=== PATIENT | male | born 1980 | race Caucasian/White ===

== ENCOUNTER 2018-11-20 15:46 | Outpatient (CLI) | payer BC, SELFPAY ==
--- NOTE | 2018-11-20 10:30 | DI.RAD_ITS ---
SYMPTOM/DIAGNOSIS: ANKLE SPRAIN, PAIN, S93.409A, SWELLING RIGHT ANKLE: Three views were obtained. There is a nondisplaced fracture of the distal fibula which is subtle and most easily seen on the lateral view. Ankle mortise appears well maintained. No additional fracture is seen.
== END 2018-11-20 16:06 ==
PROVIDERS: PCP Family Medicine; Visit Provider Family Medicine
DX: S93.401A Sprain of unspecified ligament of right ankle, initial encounter (principal); M25.571 Pain in right ankle and joints of right foot; S82.64XA Nondisplaced fracture of lateral malleolus of right fibula, initial encounter for closed fracture
CPT/HCPCS: 73610

== ENCOUNTER 2018-12-19 17:23 | Inpatient (IN) | payer BC, SELFPAY ==
[2018-12-19 17:28] VITALS: BP 138/82; PULSE 100; RESP 16; TEMP 36.6; O2SAT 98
[2018-12-19 18:33] LABS: Abs Immature Grans 0.03 k/cumm (0.0-0.09); Absolute Basophil Count 0.01 k/cumm (0.0-0.2); Absolute Eosinophil Count 0.02 k/cumm (0.0-0.7); Absolute Lymphocyte Count 1.25 k/cumm (1.2-3.4); Absolute Monocyte Count 1.07 k/cumm (0.11-0.7); Basophils % 0.1; Eosinophils % 0.2; HCT 41.7 % (40.0-50.0); HGB 14.8 g/dL (13.5-17.5); Immature Grans % 0.3; Lymphocytes % 11.2; Mean Corp. HGB Concentration 35.5 g/dL (32.0-36.0); Mean Corpuscular Hemoglobin 30.4 pg (27.0-33.0); Mean Corpuscular Volume 85.6 fL (80-95); Mean Platelet Volume 9.3 fL (8.0-11.0); Monocytes % 9.6; Neutrophils % 78.6; Platelet Count 209 x1000/uL (130-400); RBC 4.87 m/cumm (4.50-6.00); RBC Distribution Width 12.9 % (11.8-14.1); White Blood Cell Count 11.16 k/cumm (4.4-10.8)
[2018-12-19 18:35] LABS: Lactate 1.2 mmol/L (0.6-1.4)
[2018-12-19 18:37] LABS: Absolute Neutrophil Count 8.77 k/cumm (1.2-6.7)
[2018-12-19 18:50] LABS: ALT 30 U/L (12-78); AST 22 U/L (15-37); Albumin 4.4 g/dL (3.4-5.0); Alkaline Phosphatase 57 U/L (46-116); Anion Gap 6.5 mmol/L (3-11); BUN 15 mg/dL (7-18); Bilirubin, Total 0.9 mg/dL (0.2-1.0); CO2 30.5 mmol/L (21.0-32.0); CREATININE 0.94 mg/dL (0.70-1.30); Calcium 9.5 mg/dL (8.5-10.1); Chloride 100 mmol/L (98-107); Glucose 118 mg/dL (70-100); Potassium 3.7 mmol/L (3.5-5.1); Sodium 137 mmol/L (136-145); Total Protein 7.9 g/dL (6.4-8.2)
[2018-12-19] MEDS: Lidocaine/Epinephri/Tetracaine Topical Gel 3 ML TP (18:55)
--- NOTE | 2018-12-19 19:14 | ED.GENADUL_ITS ---
Discharge Plan Disposition Patient Disposition: [facility] INPATIENT Discharge Details Chief Complaint: Cellulitis Clinical Impression: Septic olecranon bursitis of left elbow Reason For Visit: left elbow red /swelling Primary Care Provider: Ke Lunsford ED Provider: David Crabtree Home Meds and New Rx's Prescriptions: No Action ibuprofen 800 mg tablet 800 mg PO BID RF: 0 Medical Decision Making 38-year-old male here with septic bursitis left elbow. Patient provided informed consent to aspiration of bursa. Aspiration performed without complication. Fluid sent for cell count and culture. Erythema outlined. Patient be started on vancomycin IV. I called and spoke with Dr. Bolanos who will admit the patient. Diagnostic labs pending at time of admission. HPI General Mode of arrival: ambulatory . Date/Time Provider Initiated Documentation: 12/19/18 17:42 . Limitations to Documentation: no limitations . Information obtained by: patient . 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 Patient said yesterday his elbow felt a little sore. It was not swollen or red. This morning he woke up and noted sig nificant swelling and redness that has progressed today. He marked wound erythema border early this afternoon and redness is spread beyond the border. Pain is moderate and worse on palpation and with movement of his elbow. Patient does not recall any direct trauma to his elbow although he does have a healing wound with scab posterior elbow -he notes he thinks he sustained a rug burn to that area a week or so ago. Patient is also had some subjective fevers. No other rash. Related Data Home Medications Medication Instructions Recorded Confirmed ibuprofen 800 mg tablet 800 mg PO BID 11/09/18 12/19/18 Allergies Allergy/AdvReac Type Severity Reaction Status Date / Time No Known Allergies Allergy Verified 12/19/18 17:32 General Stated Complaint: Cellulitis HAKEEM: 3 Review of Systems Review of Systems All systems reviewed & are unremarkable except as noted in HPI and below Constitutional Reports as per HPI and Reports fever(s) Integumentary/Breasts Reports as per HPI PFSH Family History Mother No problems noted. Father No problems noted. Brother No problems noted. Social History Smoking and Tabacco status: Never Exam Const General: cooperative and no acute distress [facility] Head: normocephalic Mouth: moist mucous membranes Eyes Conjunctivae: normal conjunctivae Sclera: normal sclerae Resp Auscultation: clear to auscultation bilaterally, no rales, no rhonchi and no wheezes Cardio Rate: regular rate and not tachycardic Rhythm: regular rhythm Pulses: radial pulses present on the left Skin General skin exam: no rashes or lesions noted Neuro General: alert, awake and tone normal Extrem General: no edema Left upper extremity: elbow/forearm (tender, swollen bursa with surrounding erythema; small 1mm pustule) Details: tenderness Location: of the olecranon and swelling Location: of the olecranon Course Vital Signs Temperature 36.6 C 12/19/18 17:28 Pulse 100 H 12/19/18 17:28 Respiratory Rate 16 12/19/18 17:28 Blood Pressure 138/82 12/19/18 17:28 Pulse Oximetry 98 12/19/18 17:28 Temperature 36.6 C 12/19/18 17:28 Temperature Source Temporal Artery Scan 12/19/18 17:28 Pulse 100 H 12/19/18 17:28 Respiratory Rate 16 12/19/18 17:28 Respiratory Effort 12/19/18 17:31 Blood Pressure 138/82 12/19/18 17:28 Blood Pressure Position Sitting 12/19/18 17:28 Pulse Oximetry 98 12/19/18 17:28 Oxygen Delivery Method Room Air 12/19/18 17:28 Oxygen Flow Rate 0 12/19/18 17:28 Pain Level 5 12/19/18 17:28 Lab/Test Results Lab/Test Results: 12/19/18 18:55 Bursa Body Fluid Culture - Pending 12/19/18 18:55 Bursa Gram Stain - Pending Laboratory Tests Range/Units 12/19/18 12/19/18 12/19/18 18:23 18:23 18:23 WBC (4.4-10.8) k/cumm 11.16 H RBC (4.50-6.00) m/cumm 4.87 Hgb (13.5-17.5) g/dL 14.8 Hct (40.0-50.0) % 41.7 MCV (80-95) fL 85.6 MCH (27.0-33.0) pg 30.4 MCHC (32.0-36.0) g/dL 35.5 RDW (11.8-14.1) % 12.9 Plt Count (130-400) x1000/uL 209 MPV (8.0-11.0) fL 9.3 Immature Gran % 0.3 Neutrophils % 78.6 Lymphocytes % 11.2 Monocytes % 9.6 Eosinophils % 0.2 Basophils % 0.1 Absolute Neutrophils (1.2-6.7) k/cumm 8.77 H Absolute Lymphocytes (1.2-3.4) k/cumm 1.25 Absolute Monocytes (0.11-0.7) k/cumm 1.07 H Absolute Eosinophils (0.0-0.7) k/cumm 0.02 Absolute Basophils (0.0-0.2) k/cumm 0.01 Sodium (136-145) mmol/L 137 Potassium (3.5-5.1) mmol/L 3.7 Chloride (98-107) mmol/L 100 Carbon Dioxide (21.0-32.0) mmol/L 30.5 Anion Gap (3-11) mmol/L 6.5 BUN (7-18) mg/dL 15 Creatinine (0.70-1.30) mg/dL 0.94 Estimated GFR/1.73 m2 (mL/min/1.73m2) >= 60.00 Glucose (70-100) mg/dL 118 H Lactate (0.6-1.4) mmol/L 1.2 Calcium (8.5-10.1) mg/dL 9.5 Total Bilirubin (0.2-1.0) mg/dL 0.9 AST (15-37) U/L 22 ALT (12-78) U/L 30 Alkaline Phosphatase (46-116) U/L 57 Total Protein (6.4-8.2) g/dL 7.9 Albumin (3.4-5.0) g/dL 4.4 Procedures Joint Aspiration/Injection Joint Asp./Inject. 1: Time Out Performed: Yes Side of body: left Joint Aspirated: elbow (bursa) Ultrasound Guidance: No Skin Prep: Chlorhexidene Local Anesthetic: other anesthetic (LET) Amount of anesthesia used (mL): 3 Needle Size Used: 18G Fluid Obtained: clear (yellow) Total fluid obtained (mL): 7 Patient Tolerated Procedure: well and no complications Complications: none
[2018-12-19] MEDS: VANCOMYCIN 1,500 MG in Normal Saline 250 ML 166.6666 MG IVPB (19:27)
[2018-12-19] MEDS: VANCOMYCIN 1,000 MG in Normal Saline 250 ML 166.6666 MG IVPB (19:30)
[2018-12-19 19:55] LABS: Clarity CLOUDY; Nucleated Cells 25184 /MM3 (0-0); Source L ELBOW
[2018-12-19 20:10] VITALS: BP 136/86; PULSE 61; RESP 18; TEMP 37.1; O2SAT 99
[2018-12-19 20:12] LABS: Polynuclear Cells 95 % (0-0)
[2018-12-19 20:13] LABS: Mononuclear Cells 5 % (0-0)
[2018-12-19 21:00] VITALS: BP 136/86; PULSE 61; RESP 18; TEMP 37.1; O2SAT 99
[2018-12-19] MEDS: Heparin 5,000 UNITS/ML VIAL 5000 UNITS SC (22:58)
[2018-12-19] MEDS: Ibuprofen 800 MG TAB PO (22:58)
--- NOTE | 2018-12-19 23:17 | W.PM.HP.N ---
Date of service: 12/19/18 Time of Service: 23:17 Assessment and Plan (1) Septic olecranon bursitis of left elbow: Start date: 12/18/18 Current visit: Yes Status: Acute This is a 38-year-old gentleman who had a sudden onset of swelling, redness with tenderness over his left olecranon bursa of his elbow with a scabbed over ulceration earlier in the week and a sudden onset of pustule with his rapidly progressing symptoms the day of admission. He also had chills and fever. With the pustule and his fever and pain one should consider MRSA. He was started on vancomycin and a culture of his left bursa aspiration was sent before initiating vancomycin. He is comfortable presently after aspiration and with ibuprofen and will require IV antibiotics until culture reports and significant response to antibiotic therapy. 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 The day prior to admission the patient began to have soreness over the same area of the elbow and the morning of admission he awakened with significant swelling, pain and redness over his left elbow in the same area with a pustule forming proximally over the reddened swollen olecranon bursal area. Because of the sudden onset and accelerated progression of his swelling and redness he reported to the ED for evaluation. He also felt feverish with the onset of his elbow swelling. In the ED he had needle aspiration for culture and was started on vancomycin. He had been taken ibuprofen for his right fibular fracture with some slight upset stomach but he tolerated ibuprofen tonight for pain after eating later in the evening. At the time I saw the patient is swelling and redness has actually receded from the brown of its progression after having his olecranon bursa aspirated. He still had tenderness and the pustule was intact with the scabbed area appearing slightly atrophic and possibly indented as if ulcerating. He had noted no swollen nodes over his left upper extremity and had not measured his fever though he felt chills and feverish and had a measured fever in the ED. He is a non-smoker and has no chronic medical problems. He has had no problems with MRSA infections in the past. Review of Systems Review of Systems 13 point review of systems otherwise unrevealing or negative and as per HPI. FOR[facility]LY [facility], [facility] Medical History Closed right fibular fracture (Resolved) Complete tear of medial collateral ligament of right knee (Resolved) Surgical History Status post arthroscopic surgery of right knee (Resolved) Family History Mother No problems noted. Father No problems noted. Brother No problems noted. Social History Smoking and Tabacco status: Never Meds Home Medications Medication Instructions Recorded Confirmed Type ibuprofen 800 mg tablet 800 mg PO BID 11/09/18 12/19/18 History Allergies Allergy/AdvReac Type Severity Reaction Status Date / Time No Known Allergies Allergy Verified 12/19/18 17:32 Exam Const General: cooperative, healthy appearing, comfortable, no acute distress, well developed, well groomed and well hydrated Nutritional Appearance: well nourished and thin Orientation: alert, awake and oriented x3 HENMT Head: normocephalic Ears: external ears normal General nose exam: external nose normal Face and sinus: normal facial exam Mouth: oral mucosae normal Teeth and gingiva: dentition normal and gingiva normal Throat: posterior oropharynx normal Eyes General: appearance normal, both eyes and all related structures Sclera: sclerae normal Pupils: PERRL EOM: EOM intact bilaterally Neck Neck: full ROM, no lymphadenopathy and no JVD Chest Chest: normal inspection of the chest Resp Effort & Inspection: normal respiratory effort Auscultation: clear to auscultation bilaterally Cardio Palpation: normal PMI Rate: regular rate Rhythm: regular rhythm Heart Sounds: S1 normal and S2 normal Pulses: radial pulses present GI Inspection: normal to inspection Palpation: soft and nontender Auscultation: normal bowel sounds Back/Spine/Pelvis Back: No back tenderness Cervical Spine: cervical ROM normal Thoracic/Lumbar Spine: thoracic and lumbar spine normal to inspection Skin General skin exam: dry skin, no ecchymosis and no jaundice Lesions: lesion noted (Erythematous swelling over the olecranon bursa area extensor surface) pustule left elbow tender Neuro General: tone normal, moves all extremities and CN's II-XI intact bilaterally Cognition: normal cognition Speech: speech normal Motor: strength 5/5 throughout Extrem General: full ROM Left upper extremity: elbow/forearm Details: tenderness, swelling, warmth and other (Left olecranon area fluctuant) Psych Appearance: well kempt Mood: congruent mood Affect: normal affect Insight: insight good Judgment: judgment good Results Labs : 12/19/18 18:23 12/19/18 18:23 Laboratory Results - last 24 hr 12/19/18 12/19/18 12/19/18 18:23 18:23 18:23 WBC 11.16 H RBC 4.87 Hgb 14.8 Hct 41.7 MCV 85.6 MCH 30.4 MCHC 35.5 RDW 12.9 Plt Count 209 MPV 9.3 Immature Gran % 0.3 Neutrophils % 78.6 Lymphocytes % 11.2 Monocytes % 9.6 Eosinophils % 0.2 Basophils % 0.1 Absolute Neutrophils 8.77 H Absolute Lymphocytes 1.25 Absolute Monocytes 1.07 H Absolute Eosinophils 0.02 Absolute Basophils 0.01 Sodium 137 Potassium 3.7 Chloride 100 Carbon Dioxide 30.5 Anion Gap 6.5 BUN 15 Creatinine 0.94 Estimated GFR/1.73 m2 >= 60.00 Glucose 118 H Lactate 1.2 Calcium 9.5 Total Bilirubin 0.9 AST 22 ALT 30 Alkaline Phosphatase 57 Total Protein 7.9 Albumin 4.4 Fluid Source Fluid Color Fluid Appearance Fluid WBC Fluid Mononuclear Cell Fl Polymorphonucl Cell Fluid Crystals Fluid Crystal Source 12/19/18 12/19/18 19:12 19:12 WBC RBC Hgb Hct MCV MCH MCHC RDW Plt Count MPV Immature Gran % Neutrophils % Lymphocytes % Monocytes % Eosinophils % Basophils % Absolute Neutrophils Absolute Lymphocytes Absolute Monocytes Absolute Eosinophils Absolute Basophils Sodium Potassium Chloride Carbon Dioxide Anion Gap BUN Creatinine Estimated GFR/1.73 m2 Glucose Lactate Calcium Total Bilirubin AST ALT Alkaline Phosphatase Total Protein Albumin Fluid Source L elbow Fluid Color Yellow Fluid Appearance Cloudy Fluid WBC 43465 H Fluid Mononuclear Cell 5 H Fl Polymorphonucl Cell 95 H Fluid Crystals See comment Fluid Crystal Source L elbow Last Vital Signs Temp 37.1 C 12/19/18 21:00 Pulse 61 12/19/18 21:00 Resp 18 12/19/18 21:00 BP 136/86 12/19/18 21:00 Pulse Ox 99 12/19/18 21:00
[2018-12-19 23:43] VITALS: BP 118/65; PULSE 90; RESP 18; TEMP 37.9; O2SAT 96
--- NOTE | 2018-12-20 03:16 | NUR.NOTE ---
Patient was admitted from the ER to the unit with history of cellulititis to the left elbow. Patient state the left elbow started pain him since one day before and then he noticed it getting swollen and difficult to move, subsequently he came to hospital for treatment. On assessment adult male in nil respiratory or painful distress. He is A&Ox3. Mucus membrane pink and moist. chest clear when ascultated. Abdomen soft flat and non-tender when palpated. NAD to the extremities. Gauze noted wrapped around the left elbow. Same uncovered for assessment, noted marked swelling and redness to the area with tenderness voiced when palpated, area also warm to touch. 20G to the right hand with vancomycin progressing from the ER. Pt made comfortable in bed, oriented to the room and hospital policy.
[2018-12-20 03:52] VITALS: BP 100/59; PULSE 66; RESP 16; TEMP 36.8; O2SAT 99
[2018-12-20] MEDS: Normal Saline Flush 10 ML SYR IVP ×2 (04:23→17:44)
[2018-12-20] MEDS: Acetaminophen 325 MG TAB PO (04:23)
[2018-12-20] MEDS: Lactated Ringers 1,000 ML 125 ML IV ×2 (04:23→15:42)
[2018-12-20] MEDS: VANCOMYCIN 1,000 MG in Normal Saline 250 ML 166.6666 MG IVPB (04:24)
[2018-12-20] MEDS: Heparin 5,000 UNITS/ML VIAL 5000 UNITS SC (05:58)
[2018-12-20 07:40] VITALS: BP 109/67; PULSE 63; RESP 20; TEMP 36; O2SAT 98
[2018-12-20 07:40] LABS: HCT 38.4 % (40.0-50.0); HGB 13.5 g/dL (13.5-17.5); Mean Corp. HGB Concentration 35.2 g/dL (32.0-36.0); Mean Corpuscular Hemoglobin 30.5 pg (27.0-33.0); Mean Corpuscular Volume 86.9 fL (80-95); Mean Platelet Volume 9.5 fL (8.0-11.0); Platelet Count 173 x1000/uL (130-400); RBC 4.42 m/cumm (4.50-6.00); RBC Distribution Width 12.8 % (11.8-14.1); White Blood Cell Count 8.77 k/cumm (4.4-10.8)
[2018-12-20 08:02] LABS: ALT 36 U/L (12-78); AST 27 U/L (15-37); Albumin 3.5 g/dL (3.4-5.0); Alkaline Phosphatase 46 U/L (46-116); Anion Gap 6.1 mmol/L (3-11); BUN 13 mg/dL (7-18); Bilirubin, Total 0.9 mg/dL (0.2-1.0); CO2 28.9 mmol/L (21.0-32.0); Calcium 8.7 mg/dL (8.5-10.1); Chloride 103 mmol/L (98-107); Glucose 103 mg/dL (70-100); Potassium 3.8 mmol/L (3.5-5.1); Sodium 138 mmol/L (136-145); Total Protein 6.8 g/dL (6.4-8.2)
--- NOTE | 2018-12-20 10:07 | PDOC.CMIN ---
Care Management Initial Assess REASON FOR HOSPITALIZATION:: Septic Olecranon Bursitis of the Left Elbow PAST MEDICAL HISTORY/PAST SURGICAL HISTORY:: Closed right fibular fracture, Complete tear of medial collateral ligament of right knee; orthroscopic surgery of right knee PREVIOUS FUNCTIONAL STATUS/SOCIAL/FAMILY SUPPORTS:: Woo resides in [place], [place]. His mother, Fatimah is his primary contact-she resides in [place]. Woo reports moving to [place] twenty five years ago. 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 CURRENT FUNCTIONAL STATUS:: Woo was sitting up in his bed when CM met with him, he was forthcoming with information; discussed some hobbies such as [employer] and work, as well as his family situation. He was pleasant in interaction. ADVANCE DIRECTIVES:: None on file. Has patient been provided with information about the portal?: Yes Did the patient sign up for the portal?: No CODE STATUS:: Full Code INSURANCE COVERAGE / FINANCIAL ISSUES:: BC/BS [place] CURRENT HOME/COMMUNITY SERVICES/EQUIPMENT:: No current services or equipment. PRIMARY CARE PHYSICIAN:: Ke Lunsford POTENTIAL DISCHARGE NEEDS:: Follow up appointment with PCP. PATIENT/FAMILY EDUCATION NEEDS:: Review of discharge instructions; Ask Me Three. ANTICIPATED BARRIERS TO DISCHARGE:: None identified. TRANSPORTATION:: Via private vehicle with a friend. PLAN:: Woo will return home when ready per MD. He will follow up with his PCP and plan of care as prescribed. CM will continue to follow.
--- NOTE | 2018-12-20 10:57 | PHARADMIT ---
Addendum entered by Marlene Lazaro 12/21/18 10:51: Pharmacy Note Subjective Objective Afebrile, VS good, pain 2/10, labs/lytes in range Micro Bursa: Gram positive nayla from broth only Assessment Vanco trough 26.2, held dose x 6 hours then adjusted to Vanco 1gram Q8h Plan follow Micro, Orthopedic consult for possible washout Likely switch to oral once cultures available Original Note: Admission Pharmacy Clinical Review ? Septic arthritis elbow Code Status Full Code Current Weight 78.8 kg Renally Cleared and Narrow Therapeutic Index Meds CrCl~121ml/min QTc Value / Action Taken BP Control, Fever BP 109/67 afebrile Pain zero Electrolytes reviewed in range DVT Prophylaxis Heparin SC Opiate Usage / Scheduled Bowel Regimen Ordered Plt/SCr for Heparin / Enoxaparin Plt 173 SCr 0.9 INR for Warfarin H/H stable, WBC/Bands H/H 13.5/38.4 WBC 8.77 Antibiotic appropriateness Vanco 1.5gram Q8h, trough ordered for 5pm Friday...may be a little early, may be discontined prior as well or changed to orals Cultures and Sensitivities Bursa sample: pending Surgical ABX d/c within 24 hr DM control / Insulin Dosing Heart Failure (Check EF%) (ISELA's, B-Block, Diuretics) IV to PO Switch Home Meds Reviewed Home Meds Not Ordered ok Comments Unsure of actual 1st dose of Vanco. ER nurse documented 1.5gram and a 1gram very close in time, but only enough med was withdrawn for the 1.5gram dose. Have a feeling the 1gram was not given. See Vanco kinetic worksheet Per RN shift report, redness and swelling alread improving
--- NOTE | 2018-12-20 11:02 | INITIAL_ITS ---
Care Management Initial Assess REASON FOR HOSPITALIZATION:: Septic Olecranon Bursitis of the Left Elbow PAST MEDICAL HISTORY/PAST SURGICAL HISTORY:: Closed right fibular fracture, Complete tear of medial collateral ligament of right knee; orthroscopic surgery of right knee PREVIOUS FUNCTIONAL STATUS/SOCIAL/FAMILY SUPPORTS:: Woo resides in [place], [place]. His mother, Fatimah is his primary contact-she resides in [place]. Woo reports moving to [place] twenty five years ago. 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 CURRENT FUNCTIONAL STATUS:: Woo was sitting up in his bed when CM met with him, he was forthcoming with information; discussed some hobbies such as [employer] and work, as well as his family situation. He was pleasant in interaction. ADVANCE DIRECTIVES:: None on file. Has patient been provided with information about the portal?: Yes Did the patient sign up for the portal?: No CODE STATUS:: Full Code INSURANCE COVERAGE / FINANCIAL ISSUES:: BC/BS [place] CURRENT HOME/COMMUNITY SERVICES/EQUIPMENT:: No current services or equipment. PRIMARY CARE PHYSICIAN:: Ke Lunsford POTENTIAL DISCHARGE NEEDS:: Follow up appointment with PCP. PATIENT/FAMILY EDUCATION NEEDS:: Review of discharge instructions; Ask Me Three. ANTICIPATED BARRIERS TO DISCHARGE:: None identified. TRANSPORTATION:: Via private vehicle with a friend. PLAN:: Woo will return home when ready per MD. He will follow up with his PCP and plan of care as prescribed. CM will continue to follow.
[2018-12-20 11:25] VITALS: BP 125/76; PULSE 98; RESP 20; TEMP 36.8; O2SAT 98
--- NOTE | 2018-12-20 13:41 | W.PM.PROGNOT ---
Date of Service Date of service: 12/20/18 Time of Service: 10:04 Assessment and Plan (1) Septic olecranon bursitis of left elbow: Current visit: Yes Status: Acute History and exam still most compatible with infectious etiology. Certainly suggestive of staph. Clinically improved. White count down and no fever. Pain less. Continue vancomycin pending culture results. Hopefully we will isolate an organism so we can get sensitivities to make a guided choice regarding oral therapy to complete treatment. Continue IV antibiotics. Subjective Patient reports: pain is less Interval history since last seen: Mr. Rees reports that his elbow is feeling better although when he fully flexes it there is still some discomfort and a tight feeling. He has had no nausea. No chills or sweats. No rash and no diarrhea. Exam Narrative Exam Narrative: Generally healthy-appearing man in no distress. No fever. He has erythema over the left olecranon region, a small pustule on the distal posterior arm above the olecranon area but still within the confines of the previously inked area. There is a dried scab a bit superior to the midpoint of the olecranon bursa. No fluctuance, slightly warm, no tenderness. Mild discomfort of the skin with full flexion of the elbow. No pain with pronation or supination. Objective Objective Clinical Data: Abnormal lab results Fluid culture no growth thus far. Gram stain with white blood cells but no bacteria seen. 12/19/18 12/19/18 12/19/18 Range/Units 18:23 18:23 19:12 WBC 11.16 H (4.4-10.8) k/cumm RBC (4.50-6.00) m/cumm Hct (40.0-50.0) % Absolute Neutrophils 8.77 H (1.2-6.7) k/cumm Absolute Monocytes 1.07 H (0.11-0.7) k/cumm Glucose 118 H (70-100) mg/dL Fluid WBC 51572 H (0-0) /MM3 Fluid Mononuclear Cell 5 H (0-0) % Fl Polymorphonucl Cell 95 H (0-0) % 12/20/18 12/20/18 Range/Units 07:18 07:18 WBC (4.4-10.8) k/cumm RBC 4.42 L (4.50-6.00) m/cumm Hct 38.4 L (40.0-50.0) % Absolute Neutrophils (1.2-6.7) k/cumm Absolute Monocytes (0.11-0.7) k/cumm Glucose 103 H (70-100) mg/dL Fluid WBC (0-0) /MM3 Fluid Mononuclear Cell (0-0) % Fl Polymorphonucl Cell (0-0) % Vital Signs Temperature 36.8 C 12/20/18 11:25 Temperature Source Tympanic 12/20/18 11:25 Pulse 98 H 12/20/18 11:25 Pulse Rhythm Regular 12/20/18 09:42 Respiratory Rate 20 12/20/18 11:25 Respiratory Effort Non-Labored 12/20/18 09:42 Respiratory Depth Normal 12/20/18 09:42 Respiratory Pattern Normal 12/20/18 09:42 Blood Pressure 125/76 12/20/18 11:25 Blood Pressure Position Sitting 12/19/18 17:28 Pulse Oximetry 98 12/20/18 11:25 Oxygen Delivery Method Room Air 12/20/18 11:25 Oxygen Flow Rate 0 12/20/18 11:25 Pain Level 0 12/20/18 11:25 Intake & Output 12/19/18 12/20/18 12/20/18 22:59 11:59 23:59 Intake Total Balance Weight Intake: IV Oral Other: Comment Voiding Methods Laboratory Results WBC 8.77 k/cumm (4.4-10.8) 12/20/18 07:18 RBC 4.42 m/cumm (4.50-6.00) L 12/20/18 07:18 Hgb 13.5 g/dL (13.5-17.5) 12/20/18 07:18 Hct 38.4 % (40.0-50.0) L 12/20/18 07:18 MCV 86.9 fL (80-95) 12/20/18 07:18 MCH 30.5 pg (27.0-33.0) 12/20/18 07:18 MCHC 35.2 g/dL (32.0-36.0) 12/20/18 07:18 RDW 12.8 % (11.8-14.1) 12/20/18 07:18 Plt Count 173 x1000/uL (130-400) 12/20/18 07:18 MPV 9.5 fL (8.0-11.0) 12/20/18 07:18 Immature Gran % 0.3 12/19/18 18:23 Neutrophils % 78.6 12/19/18 18:23 Lymphocytes % 11.2 12/19/18 18:23 Monocytes % 9.6 12/19/18 18:23 Eosinophils % 0.2 12/19/18 18:23 Basophils % 0.1 12/19/18 18:23 Absolute Neutrophils 8.77 k/cumm (1.2-6.7) H 12/19/18 18:23 Absolute Lymphocytes 1.25 k/cumm (1.2-3.4) 12/19/18 18:23 Absolute Monocytes 1.07 k/cumm (0.11-0.7) H 12/19/18 18:23 Absolute Eosinophils 0.02 k/cumm (0.0-0.7) 12/19/18 18:23 Absolute Basophils 0.01 k/cumm (0.0-0.2) 12/19/18 18:23 Sodium 138 mmol/L (136-145) 12/20/18 07:18 Potassium 3.8 mmol/L (3.5-5.1) 12/20/18 07:18 Chloride 103 mmol/L (98-107) 12/20/18 07:18 Carbon Dioxide 28.9 mmol/L (21.0-32.0) 12/20/18 07:18 Anion Gap 6.1 mmol/L (3-11) 12/20/18 07:18 BUN 13 mg/dL (7-18) 12/20/18 07:18 Creatinine 0.90 mg/dL (0.70-1.30) 12/20/18 07:18 Estimated GFR/1.73 m2 >= 60.00 (mL/min/1.73m2) 12/20/18 07:18 Glucose 103 mg/dL (70-100) H 12/20/18 07:18 Lactate 1.2 mmol/L (0.6-1.4) 12/19/18 18:23 Calcium 8.7 mg/dL (8.5-10.1) 12/20/18 07:18 Total Bilirubin 0.9 mg/dL (0.2-1.0) 12/20/18 07:18 AST 27 U/L (15-37) 12/20/18 07:18 ALT 36 U/L (12-78) 12/20/18 07:18 Alkaline Phosphatase 46 U/L (46-116) 12/20/18 07:18 Total Protein 6.8 g/dL (6.4-8.2) 12/20/18 07:18 Albumin 3.5 g/dL (3.4-5.0) 12/20/18 07:18 Fluid Source L elbow 12/19/18 19:12 Fluid Color Yellow 12/19/18 19:12 Fluid Appearance Cloudy 12/19/18 19:12 Fluid WBC 97355 /MM3 (0-0) H 12/19/18 19:12 Fluid Mononuclear Cell 5 % (0-0) H 12/19/18 19:12 Fl Polymorphonucl Cell 95 % (0-0) H 12/19/18 19:12 Fluid Crystals See comment 12/19/18 19:12 Fluid Crystal Source L elbow 12/19/18 19:12
[2018-12-20 15:51] VITALS: BP 120/72; PULSE 89; RESP 17; TEMP 37.2; O2SAT 100
[2018-12-20] MEDS: Acetaminophen 500 MG TAB 1000 MG PO ×2 (15:53→22:24)
[2018-12-20 20:08] VITALS: BP 116/68; PULSE 79; RESP 17; TEMP 37.2; O2SAT 98
[2018-12-20 23:47] VITALS: BP 118/69; PULSE 84; RESP 18; TEMP 36.9; O2SAT 98
[2018-12-21 03:19] VITALS: BP 114/74; PULSE 79; RESP 16; TEMP 36.8; O2SAT 98
[2018-12-21 07:15] LABS: Abs Immature Grans 0.01 k/cumm (0.0-0.09); Absolute Basophil Count 0.01 k/cumm (0.0-0.2); Absolute Eosinophil Count 0.09 k/cumm (0.0-0.7); Absolute Lymphocyte Count 1.18 k/cumm (1.2-3.4); Absolute Monocyte Count 0.74 k/cumm (0.11-0.7); Absolute Neutrophil Count 5.86 k/cumm (1.2-6.7); Basophils % 0.1; Eosinophils % 1.1; HCT 38.7 % (40.0-50.0); HGB 13.6 g/dL (13.5-17.5); Immature Grans % 0.1; Mean Corp. HGB Concentration 35.1 g/dL (32.0-36.0); Mean Corpuscular Hemoglobin 30.6 pg (27.0-33.0); Mean Platelet Volume 9.5 fL (8.0-11.0); Monocytes % 9.4; Neutrophils % 74.3; Platelet Count 171 x1000/uL (130-400); RBC 4.45 m/cumm (4.50-6.00); White Blood Cell Count 7.89 k/cumm (4.4-10.8)
[2018-12-21 07:20] VITALS: BP 120/75; PULSE 60; RESP 14; TEMP 37.2; O2SAT 98
[2018-12-21 07:29] LABS: Anion Gap 8.2 mmol/L (3-11); BUN 10 mg/dL (7-18); CO2 28.8 mmol/L (21.0-32.0); Chloride 102 mmol/L (98-107); Glucose 113 mg/dL (70-100); Potassium 3.9 mmol/L (3.5-5.1); Sodium 139 mmol/L (136-145)
[2018-12-21] MEDS: Acetaminophen 500 MG TAB 1000 MG PO ×2 (09:14→23:48)
--- NOTE | 2018-12-21 09:17 | PDOC.CMPRO ---
- If Service Date Differs Date of service: 12/21/18 Time of Service: 09:17 Care Management Progress Note S/O: Woo is receiving IV antibiotics, he does have an orthopedic consult. No change in status today. WBC has improved and wound culture is pending. A: 38 year old male admitted with Septic Bursitis of the Left Elbow P:Woo will return home when medically ready per provider. Anticipate he will transition to oral antibiotics. Anticipate no additional services at time of discharge and follow up with primary care.
[2018-12-21 09:47] LABS: Vancomycin, Trough 26.2 ug/mL (10.0-20.0)
[2018-12-21 11:05] VITALS: BP 117/68; PULSE 91; RESP 14; TEMP 37.4; O2SAT 97
--- NOTE | 2018-12-21 11:43 | CHAPLAIN ---
Woo was in bed when I visited. He was pleasant, but not interested in a longer visit. I introduce myself, explained my role and offered support.
--- NOTE | 2018-12-21 15:44 | PGE_ITS ---
Date of Service Date of service: 12/21/18 Time of Service: 07:15 Assessment and Plan (1) Septic olecranon bursitis of left elbow: Current visit: Yes Status: Acute Slow clinical improvement. I spoke with Dr. Epstein with a question as to whether or not repeat drainage or open lavage is indicated. His opinion is pending. Culture of broth from the aspirate is growing gram-positive cocci, identification and sensitivities are not yet available. Pending those results continue vancomycin. Will try naproxen for pain relief as needed. Subjective Interval history since last seen: Elbow still sore but less than yesterday. He can fully flex with a little bit of discomfort, no pain on extension. No fevers or chills. Developed some nausea and epigastric discomfort following 800 mg ibuprofen dose and requests that this be discontinued. He has tolerated 200 mg ibuprofen dose in the past. He is having bowel movements. He is increasingly concerned about his time away from work (and loss of income) as he has used up all of his flex time with a recent ankle fracture. Exam Narrative Exam Narrative: No acute distress. Lungs are clear. No heart murmur. Abdomen normal bowel sounds no tenderness no nausea provoked. Left elbow with erythema that has receded from the outer incline, there is still some intense erythema directly over the olecranon. A small pustule more proximal is scabbed over. Mi ld tenderness to palpation over the area of maximum erythema with a small amount of fluid palpable. Objective Objective Clinical Data: Abnormal lab results 12/21/18 12/21/18 12/21/18 Range/Units 06:48 06:48 09:04 RBC 4.45 L (4.50-6.00) m/cumm Hct 38.7 L (40.0-50.0) % Absolute Lymphocytes 1.18 L (1.2-3.4) k/cumm Absolute Monocytes 0.74 H (0.11-0.7) k/cumm Glucose 113 H (70-100) mg/dL Vancomycin Trough 26.2 H* (10.0-20.0) ug/mL Vital Signs Temperature 37.4 C 12/21/18 11:05 Temperature Source Tympanic 12/21/18 11:05 Pulse 91 H 12/21/18 11:05 Pulse Rhythm Regular 12/21/18 10:18 Respiratory Rate 14 12/21/18 11:05 Respiratory Effort Non-Labored 12/21/18 10:18 Respiratory Depth Normal 12/21/18 10:18 Respiratory Pattern Normal 12/21/18 10:18 Blood Pressure 117/68 12/21/18 11:05 Blood Pressure Position Sitting 12/19/18 17:28 Pulse Oximetry 97 12/21/18 11:05 Oxygen Delivery Method Room Air 12/21/18 11:05 Oxygen Flow Rate 0 12/21/18 11:05 Pain Level 2 12/21/18 10:14 Comment 12/21/18 11:05 Intake & Output 12/20/18 12/21/18 12/21/18 23:59 11:59 23:59 Intake Total 2690.417 / 3440.417 850 / 850 Balance 2690.417 / 3440.417 850 / 850 Weight 74 kg Intake: IV 1810.417 / 2070.417 250 / 250 Oral 880 / 1370 600 / 600 Other: Comment REPORTED Voiding Methods Toilet Toilet Laboratory Results WBC 7.89 k/cumm (4.4-10.8) 12/21/18 06:48 RBC 4.45 m/cumm (4.50-6.00) L 12/21/18 06:48 Hgb 13.6 g/dL (13.5-17.5) 12/21/18 06:48 Hct 38.7 % (40.0-50.0) L 12/21/18 06:48 MCV 87.0 fL (80-95) 12/21/18 06:48 MCH 30.6 pg (27.0-33.0) 12/21/18 06:48 MCHC 35.1 g/dL (32.0-36.0) 12/21/18 06:48 RDW 13.0 % (11.8-14.1) 12/21/18 06:48 Plt Count 171 x1000/uL (130-400) 12/21/18 06:48 MPV 9.5 fL (8.0-11.0) 12/21/18 06:48 Immature Gran % 0.1 12/21/18 06:48 Neutrophils % 74.3 12/21/18 06:48 Lymphocytes % 15.0 12/21/18 06:48 Monocytes % 9.4 12/21/18 06:48 Eosinophils % 1.1 12/21/18 06:48 Basophils % 0.1 12/21/18 06:48 Absolute Neutrophils 5.86 k/cumm (1.2-6.7) 12/21/18 06:48 Absolute Lymphocytes 1.18 k/cumm (1.2-3.4) L 12/21/18 06:48 Absolute Monocytes 0.74 k/cumm (0.11-0.7) H 12/21/18 06:48 Absolute Eosinophils 0.09 k/cumm (0.0-0.7) 12/21/18 06:48 Absolute Basophils 0.01 k/cumm (0.0-0.2) 12/21/18 06:48 Sodium 139 mmol/L (136-145) 12/21/18 06:48 Potassium 3.9 mmol/L (3.5-5.1) 12/21/18 06:48 Chloride 102 mmol/L (98-107) 12/21/18 06:48 Carbon Dioxide 28.8 mmol/L (21.0-32.0) 12/21/18 06:48 Anion Gap 8.2 mmol/L (3-11) 12/21/18 06:48 BUN 10 mg/dL (7-18) 12/21/18 06:48 Creatinine 0.90 mg/dL (0.70-1.30) 12/21/18 06:48 Estimated GFR/1.73 m2 >= 60.00 (mL/min/1.73m2) 12/21/18 06:48 Glucose 113 mg/dL (70-100) H 12/21/18 06:48 Lactate 1.2 mmol/L (0.6-1.4) 12/19/18 18:23 Calcium 9.0 mg/dL (8.5-10.1) 12/21/18 06:48 Total Bilirubin 0.9 mg/dL (0.2-1.0) 12/20/18 07:18 AST 27 U/L (15-37) 12/20/18 07:18 ALT 36 U/L (12-78) 12/20/18 07:18 Alkaline Phosphatase 46 U/L (46-116) 12/20/18 07:18 Total Protein 6.8 g/dL (6.4-8.2) 12/20/18 07:18 Albumin 3.5 g/dL (3.4-5.0) 12/20/18 07:18 Fluid Source L elbow 12/19/18 19:12 Fluid Color Yellow 12/19/18 19:12 Fluid Appearance Cloudy 12/19/18 19:12 Fluid WBC 58568 /MM3 (0-0) H 12/19/18 19:12 Fluid Mononuclear Cell 5 % (0-0) H 12/19/18 19:12 Fl Polymorphonucl Cell 95 % (0-0) H 12/19/18 19:12 Fluid Crystals See comment 12/19/18 19:12 Fluid Crystal Source L elbow 12/19/18 19:12 Fl Crystal Path Review 12/19/18 19:12 Vancomycin Trough 26.2 ug/mL (10.0-20.0) H* 12/21/18 09:04 Path Cons Comment 12/19/18 19:12
[2018-12-21] MEDS: Normal Saline Flush 10 ML SYR IVP (15:49)
[2018-12-21 16:45] VITALS: BP 132/81; PULSE 91; RESP 18; TEMP 36.4; O2SAT 96
--- NOTE | 2018-12-21 17:16 | W.ORTHOCONSU ---
Date of service: 12/21/18 Time of Service: 17:16 History of Present Illness Chief Complaint: infected L olecranon bursa Narrative: 38 y.o. w. m. [employer] who presented with a swollen, painful, erythematous olecranon bursa to the ER on 12/19/18. Onset of symptoms was < 24 hours. No breaks in the skin were noted. The bursa was aspirated. Fluid was sent for c+s. Cell count of fluid showed > 25,000 WBC. He was admitted and started on IV antibiotics. He is feeling better, but has reaccumulated fluid in the bursa. wbc is 7,890 today. Cultures growing Gram + cocci from broth only. Organism not identified yet. I was consulted by for possible reaspiration of the olecranon bursa to speed up recovery.e Assessment and Plan (1) Septic olecranon bursitis of left elbow: Current visit: Yes Status: Acute Assessment: Infected L olecranon bursa. Has had fair response to treatment so far. I think he would benefit from repeat aspiration. It would decrease his discomfort and provide fluid for repeat culture to hopefully identify the infecting baqcteria. Plan: Using sterile technique, I aspirated 4 cc's of bloody fluid from the olecranon bursa. Specimen was sent for repeat C+S. I will follow with you. PFSH Medical History Closed right fibular fracture (Resolved) Complete tear of medial collateral ligament of right knee (Resolved) Surgical History Status post arthroscopic surgery of right knee (Resolved) Family History Mother No problems noted. Father No problems noted. Brother No problems noted. Social History Smoking and Tabacco status: Never Exam Narrative Exam Narrative: L olecranon bursa has fluid. Tender to palpate over bursa. Not painful to flex and extend L elbow actively. Has scab just proximal to point of elbow--may have been the site of entry for infection. Results Last Vital Signs Temp 36.4 C L 12/21/18 16:45 Pulse 91 H 12/21/18 16:45 Resp 18 12/21/18 16:45 BP 132/81 12/21/18 16:45 Pulse Ox 96 12/21/18 16:45 Labs : 12/21/18 06:48 12/21/18 06:48 Laboratory Results - last 24 hr 12/19/18 12/19/18 12/21/18 19:12 19:12 06:48 WBC RBC Hgb Hct MCV MCH MCHC RDW Plt Count MPV Immature Gran % Neutrophils % Lymphocytes % Monocytes % Eosinophils % Basophils % Absolute Neutrophils Absolute Lymphocytes Absolute Monocytes Absolute Eosinophils Absolute Basophils Sodium 139 Potassium 3.9 Chloride 102 Carbon Dioxide 28.8 Anion Gap 8.2 BUN 10 Creatinine 0.90 Estimated GFR/1.73 m2 >= 60.00 Glucose 113 H Calcium 9.0 Fl Crystal Path Review Vancomycin Trough Path Cons Comment 12/21/18 12/21/18 06:48 09:04 WBC 7.89 RBC 4.45 L Hgb 13.6 Hct 38.7 L MCV 87.0 MCH 30.6 MCHC 35.1 RDW 13.0 Plt Count 171 MPV 9.5 Immature Gran % 0.1 Neutrophils % 74.3 Lymphocytes % 15.0 Monocytes % 9.4 Eosinophils % 1.1 Basophils % 0.1 Absolute Neutrophils 5.86 Absolute Lymphocytes 1.18 L Absolute Monocytes 0.74 H Absolute Eosinophils 0.09 Absolute Basophils 0.01 Sodium Potassium Chloride Carbon Dioxide Anion Gap BUN Creatinine Estimated GFR/1.73 m2 Glucose Calcium Fl Crystal Path Review Vancomycin Trough 26.2 H* Path Cons Comment
[2018-12-21] MEDS: Naproxen 375 MG TAB PO (17:44)
[2018-12-21 19:51] VITALS: BP 121/72; PULSE 79; RESP 19; TEMP 37.2; O2SAT 100
[2018-12-22 00:50] VITALS: BP 123/73; PULSE 98; RESP 18; TEMP 37.7; O2SAT 98
[2018-12-22 03:22] VITALS: BP 110/72; PULSE 87; RESP 18; TEMP 36.7; O2SAT 97
[2018-12-22 07:20] VITALS: BP 111/74; PULSE 74; RESP 18; TEMP 36; O2SAT 97
[2018-12-22] MEDS: Normal Saline Flush 10 ML SYR IVP ×3 (07:44→19:42)
--- NOTE | 2018-12-22 08:48 | CMPROGNOTE_ITS ---
- If Service Date Differs Date of service: 12/22/18 Time of Service: 08:47 Care Management Progress Note S/O: Woo is doing well he continues on IV antibiotics sensitivities are pending. Anticipate he will transition to oral antibiotics when sensitivities results are reported. Woo states that he is currently out of work and does not have any earn time or sick leave. CM reviewed resources with the patient including earn time bank with is employer. He is hopeful he will be able to ret urn to work within in the next few days. A:Woo is a 38 year old male admitted with Septic Bursitis of the Left Elbow P:Woo will return home when medically ready per provider. Anticipate he will transition to oral antibiotics. Anticipate no additional services at time of discharge and follow up with primary care.
[2018-12-22 11:35] VITALS: BP 107/61; PULSE 80; RESP 18; TEMP 36.5; O2SAT 98
--- NOTE | 2018-12-22 15:17 | W.PM.PROGNOT ---
Date of Service Date of service: 12/22/18 Time of Service: 12:00 Assessment and Plan (1) Septic olecranon bursitis of left elbow: Current visit: Yes Status: Acute Assessment: Infected olecranon bursa left. I think he is much improved since I aspirated the bursa yesterday. He is not going to need a formal I&D of the bursa. I think he can be discharged home on p.o. antibiotics once sensitivities are available from his most recent culture. Plan: Discussed with . Will await sensitivities to rule out MRSA. Will be sent home on appropriate oral antibiotics. Should follow-up with me in 7-10 days. Subjective Interval history since last seen: His left elbow is less sore since I aspirated yesterday. He said he is feeling good. Exam Narrative Exam Narrative: Erythema is less about his olecranon. He has not reaccumulated significant amount of fluid since I aspirate his olecranon bursa yesterday. He is not as tender as he was yesterday with palpation over the bursa. The fluid I sent for culture yesterday is already growing staph aureus. The previous culture taken from an aspiration on 12/19/2018 showed only scant growth of staph in the broth. Sensitivities are not available yet. He is afebrile. Objective Objective Clinical Data: Vital Signs Temperature 36.5 C 12/22/18 11:35 Temperature Source Tympanic 12/22/18 11:35 Pulse 80 12/22/18 11:35 Pulse Rhythm Regular 12/22/18 08:46 Respiratory Rate 18 12/22/18 11:35 Respiratory Effort Non-Labored 12/22/18 08:46 Respiratory Depth Normal 12/22/18 08:46 Respiratory Pattern Normal 12/22/18 08:46 Blood Pressure 107/61 12/22/18 11:35 Blood Pressure Position Sitting 12/19/18 17:28 Pulse Oximetry 98 12/22/18 11:35 Oxygen Delivery Method Room Air 12/22/18 11:35 Oxygen Flow Rate 0 12/22/18 11:35 Pain Level 5 12/21/18 23:48 Comment 12/21/18 11:05 Intake & Output 12/21/18 12/22/18 12/22/18 23:59 11:59 23:59 Intake Total 440 / 1290 440 / 680 240 / 680 Balance 440 / 1290 440 / 680 240 / 680 Weight 72.2 kg Intake: IV 200 / 450 200 / 200 Oral 240 / 840 240 / 480 240 / 480 Other: Comment reported UOP Ind and no issues. Voiding Methods Toilet Toilet Laboratory Results WBC 7.89 k/cumm (4.4-10.8) 12/21/18 06:48 RBC 4.45 m/cumm (4.50-6.00) L 12/21/18 06:48 Hgb 13.6 g/dL (13.5-17.5) 12/21/18 06:48 Hct 38.7 % (40.0-50.0) L 12/21/18 06:48 MCV 87.0 fL (80-95) 12/21/18 06:48 MCH 30.6 pg (27.0-33.0) 12/21/18 06:48 MCHC 35.1 g/dL (32.0-36.0) 12/21/18 06:48 RDW 13.0 % (11.8-14.1) 12/21/18 06:48 Plt Count 171 x1000/uL (130-400) 12/21/18 06:48 MPV 9.5 fL (8.0-11.0) 12/21/18 06:48 Immature Gran % 0.1 12/21/18 06:48 Neutrophils % 74.3 12/21/18 06:48 Lymphocytes % 15.0 12/21/18 06:48 Monocytes % 9.4 12/21/18 06:48 Eosinophils % 1.1 12/21/18 06:48 Basophils % 0.1 12/21/18 06:48 Absolute Neutrophils 5.86 k/cumm (1.2-6.7) 12/21/18 06:48 Absolute Lymphocytes 1.18 k/cumm (1.2-3.4) L 12/21/18 06:48 Absolute Monocytes 0.74 k/cumm (0.11-0.7) H 12/21/18 06:48 Absolute Eosinophils 0.09 k/cumm (0.0-0.7) 12/21/18 06:48 Absolute Basophils 0.01 k/cumm (0.0-0.2) 12/21/18 06:48 Sodium 139 mmol/L (136-145) 12/21/18 06:48 Potassium 3.9 mmol/L (3.5-5.1) 12/21/18 06:48 Chloride 102 mmol/L (98-107) 12/21/18 06:48 Carbon Dioxide 28.8 mmol/L (21.0-32.0) 12/21/18 06:48 Anion Gap 8.2 mmol/L (3-11) 12/21/18 06:48 BUN 10 mg/dL (7-18) 12/21/18 06:48 Creatinine 0.90 mg/dL (0.70-1.30) 12/21/18 06:48 Estimated GFR/1.73 m2 >= 60.00 (mL/min/1.73m2) 12/21/18 06:48 Glucose 113 mg/dL (70-100) H 12/21/18 06:48 Lactate 1.2 mmol/L (0.6-1.4) 12/19/18 18:23 Calcium 9.0 mg/dL (8.5-10.1) 12/21/18 06:48 Total Bilirubin 0.9 mg/dL (0.2-1.0) 12/20/18 07:18 AST 27 U/L (15-37) 12/20/18 07:18 ALT 36 U/L (12-78) 12/20/18 07:18 Alkaline Phosphatase 46 U/L (46-116) 12/20/18 07:18 Total Protein 6.8 g/dL (6.4-8.2) 12/20/18 07:18 Albumin 3.5 g/dL (3.4-5.0) 12/20/18 07:18 Fluid Source L elbow 12/19/18 19:12 Fluid Color Yellow 12/19/18 19:12 Fluid Appearance Cloudy 12/19/18 19:12 Fluid WBC 06897 /MM3 (0-0) H 12/19/18 19:12 Fluid Mononuclear Cell 5 % (0-0) H 12/19/18 19:12 Fl Polymorphonucl Cell 95 % (0-0) H 12/19/18 19:12 Fluid Crystals See comment 12/19/18 19:12 Fluid Crystal Source L elbow 12/19/18 19:12 Fl Crystal Path Review 12/19/18 19:12 Vancomycin Trough 26.2 ug/mL (10.0-20.0) H* 12/21/18 09:04 Path Cons Comment 12/19/18 19:12
[2018-12-22 15:50] LABS: Vancomycin, Trough 16.3 ug/mL (10.0-20.0)
--- NOTE | 2018-12-22 16:02 | W.PM.PROGNOT ---
Date of Service Date of service: 12/22/18 Time of Service: 16:03 Assessment and Plan (1) Septic olecranon bursitis of left elbow: Current visit: Yes Status: Acute Continue vancomycin as empiric therapy for the septic bursitis. Sensitivities are pending. Probable discharge tomorrow on p.o. antibiotics (2) Discharge planning issues: Current visit: Yes Status: Acute Remains a full code. Probable discharge tomorrow with further identification of the organism. Subjective Interval history since last seen: Patient admitted with cellulitis of the left olecranon. Dr. Epstein aspirated 4 cc of purulent bloody material last night. Both the original aspiration and last night's aspiration are growing staph aureus, sensitivities are pending. Today he can bend the elbow quite freely with minimal pain. He has not required additional pain medication. Exam Narrative Exam Narrative: Exam of that left elbow shows a well demarcated area of erythema. There is slight swelling of the olecranon. There is some overlying warmth. No drainage or discharge. Range of motion of that left elbow appears to be normal without evidence of pain. Objective Objective Clinical Data: Vital Signs Temperature 36.5 C 12/22/18 11:35 Temperature Source Tympanic 12/22/18 11:35 Pulse 80 12/22/18 11:35 Pulse Rhythm Regular 12/22/18 08:46 Respiratory Rate 18 12/22/18 11:35 Respiratory Effort Non-Labored 12/22/18 08:46 Respiratory Depth Normal 12/22/18 08:46 Respiratory Pattern Normal 12/22/18 08:46 Blood Pressure 107/61 12/22/18 11:35 Blood Pressure Position Sitting 12/19/18 17:28 Pulse Oximetry 98 12/22/18 11:35 Oxygen Delivery Method Room Air 12/22/18 11:35 Oxygen Flow Rate 0 12/22/18 11:35 Pain Level 5 12/21/18 23:48 Comment 12/21/18 11:05 Intake & Output 12/21/18 12/22/18 12/22/18 23:59 11:59 23:59 Intake Total 440 / 1290 440 / 680 240 / 680 Balance 440 / 1290 440 / 680 240 / 680 Weight 72.2 kg Intake: IV 200 / 450 200 / 200 Oral 240 / 840 240 / 480 240 / 480 Other: Comment reported UOP Ind and no issues. Voiding Methods Toilet Toilet Laboratory Results WBC 7.89 k/cumm (4.4-10.8) 12/21/18 06:48 RBC 4.45 m/cumm (4.50-6.00) L 12/21/18 06:48 Hgb 13.6 g/dL (13.5-17.5) 12/21/18 06:48 Hct 38.7 % (40.0-50.0) L 12/21/18 06:48 MCV 87.0 fL (80-95) 12/21/18 06:48 MCH 30.6 pg (27.0-33.0) 12/21/18 06:48 MCHC 35.1 g/dL (32.0-36.0) 12/21/18 06:48 RDW 13.0 % (11.8-14.1) 12/21/18 06:48 Plt Count 171 x1000/uL (130-400) 12/21/18 06:48 MPV 9.5 fL (8.0-11.0) 12/21/18 06:48 Immature Gran % 0.1 12/21/18 06:48 Neutrophils % 74.3 12/21/18 06:48 Lymphocytes % 15.0 12/21/18 06:48 Monocytes % 9.4 12/21/18 06:48 Eosinophils % 1.1 12/21/18 06:48 Basophils % 0.1 12/21/18 06:48 Absolute Neutrophils 5.86 k/cumm (1.2-6.7) 12/21/18 06:48 Absolute Lymphocytes 1.18 k/cumm (1.2-3.4) L 12/21/18 06:48 Absolute Monocytes 0.74 k/cumm (0.11-0.7) H 12/21/18 06:48 Absolute Eosinophils 0.09 k/cumm (0.0-0.7) 12/21/18 06:48 Absolute Basophils 0.01 k/cumm (0.0-0.2) 12/21/18 06:48 Sodium 139 mmol/L (136-145) 12/21/18 06:48 Potassium 3.9 mmol/L (3.5-5.1) 12/21/18 06:48 Chloride 102 mmol/L (98-107) 12/21/18 06:48 Carbon Dioxide 28.8 mmol/L (21.0-32.0) 12/21/18 06:48 Anion Gap 8.2 mmol/L (3-11) 12/21/18 06:48 BUN 10 mg/dL (7-18) 12/21/18 06:48 Creatinine 0.90 mg/dL (0.70-1.30) 12/21/18 06:48 Estimated GFR/1.73 m2 >= 60.00 (mL/min/1.73m2) 12/21/18 06:48 Glucose 113 mg/dL (70-100) H 12/21/18 06:48 Lactate 1.2 mmol/L (0.6-1.4) 12/19/18 18:23 Calcium 9.0 mg/dL (8.5-10.1) 12/21/18 06:48 Total Bilirubin 0.9 mg/dL (0.2-1.0) 12/20/18 07:18 AST 27 U/L (15-37) 12/20/18 07:18 ALT 36 U/L (12-78) 12/20/18 07:18 Alkaline Phosphatase 46 U/L (46-116) 12/20/18 07:18 Total Protein 6.8 g/dL (6.4-8.2) 12/20/18 07:18 Albumin 3.5 g/dL (3.4-5.0) 12/20/18 07:18 Fluid Source L elbow 12/19/18 19:12 Fluid Color Yellow 12/19/18 19:12 Fluid Appearance Cloudy 12/19/18 19:12 Fluid WBC 59605 /MM3 (0-0) H 12/19/18 19:12 Fluid Mononuclear Cell 5 % (0-0) H 12/19/18 19:12 Fl Polymorphonucl Cell 95 % (0-0) H 12/19/18 19:12 Fluid Crystals See comment 12/19/18 19:12 Fluid Crystal Source L elbow 12/19/18 19:12 Fl Crystal Path Review 12/19/18 19:12 Vancomycin Trough 16.3 ug/mL (10.0-20.0) 12/22/18 15:15 Path Cons Comment 12/19/18 19:12 Objective Narrative Objective Narrative: Wound culture results from 12/19/2018 and 12/21/2018 show growth of staph aureus, sensitivities pending
[2018-12-22 17:01] VITALS: BP 132/74; PULSE 82; RESP 18; TEMP 37.4; O2SAT 98
[2018-12-22] MEDS: Acetaminophen 500 MG TAB 1000 MG PO (19:42)
[2018-12-22 20:14] VITALS: BP 135/78; PULSE 77; RESP 19; TEMP 37.5; O2SAT 97
[2018-12-23 00:22] VITALS: BP 111/66; PULSE 80; RESP 16; TEMP 35.8
[2018-12-23 03:22] VITALS: BP 101/58; PULSE 79; RESP 16; TEMP 35.9; O2SAT 98
[2018-12-23 07:12] LABS: Abs Immature Grans 0.02 k/cumm (0.0-0.09); Absolute Basophil Count 0.02 k/cumm (0.0-0.2); Absolute Eosinophil Count 0.16 k/cumm (0.0-0.7); Absolute Lymphocyte Count 1.72 k/cumm (1.2-3.4); Absolute Monocyte Count 0.57 k/cumm (0.11-0.7); Absolute Neutrophil Count 3.41 k/cumm (1.2-6.7); Basophils % 0.3; Eosinophils % 2.7; HCT 40.4 % (40.0-50.0); HGB 13.7 g/dL (13.5-17.5); Immature Grans % 0.3; Lymphocytes % 29.2; Mean Corp. HGB Concentration 33.9 g/dL (32.0-36.0); Mean Corpuscular Hemoglobin 29.8 pg (27.0-33.0); Mean Platelet Volume 9.6 fL (8.0-11.0); Monocytes % 9.7; Neutrophils % 57.8; Platelet Count 228 x1000/uL (130-400); RBC 4.59 m/cumm (4.50-6.00); RBC Distribution Width 13.1 % (11.8-14.1)
[2018-12-23 07:20] VITALS: BP 123/75; PULSE 82; RESP 18; TEMP 36.4; O2SAT 99
[2018-12-23] MEDS: Normal Saline Flush 10 ML SYR IVP (07:39)
[2018-12-23] MEDS: Acetaminophen 500 MG TAB 1000 MG PO (07:46)
--- NOTE | 2018-12-23 09:39 | PDOC.CMDIS ---
LACE Index Scoring Tool - Questions: Length of Stay (in days): 4 - 6 Acuity (Admit via E.D.?): Yes E.D. Visits: 2 - Answers: Total Score: 9 Risk of Readmission: Low Risk Care Management Discharge Reason for Hospitalization: Septic Olecranon Bursitis of the Left Elbow Discharge Plan: Woo will return home with no additional services per MD. He will follow up with his PCP and plan of care as prescribed. He will transport via private vehicle with a friend. Patient/Family Education Needs: Review discharge instructions, discuss Ask Me Three.
--- NOTE | 2018-12-23 16:19 | W.PM.DS.N ---
Date of service: 12/23/18 Time of Service: 16:20 DS: Diagnosis Discharge Diagnosis (1) Septic olecranon bursitis of left elbow: Status: Acute Discharge Plan Disposition Patient Disposition: HOME Condition: Good Discharge Details Reason For Visit: SEPTIC ARTHRITIS ELBOW Admit Date/Time: 12/19/18 18:57 Admit Provider: Brayan Bolanos Attending Provider: Brayan Bolanos Primary Care Provider: Ke Lunsford Hospital Course Hospital Course: Presented with hot, red, swollen right elbow. Drainage positve for Staph A. Rx IV vanco until sensitivity available. Re-drained 12/21/18, again positive Staph A. Senisitive to oxacillin. D/C on Keflex. Home Meds and New Rx's Prescriptions: New cephalexin 500 mg tablet 500 mg PO TID Qty: 20 RF: 0 No Action ibuprofen 800 mg tablet 800 mg PO BID RF: 0 Discharge Instructions Instructions: Elbow Bursitis (GEN) Additional Instructions: Monitor for signs of recurrent infection. Stand Alone Forms: Nursing Discharge Form Referrals: Ke Lunsford DO [Primary Care Provider] - 01/07/19 3:30 pm Activity:: Activity as Tolerated Equipment/Supplies:: No Equipment Needed Diet:: As Tolerated Discharge Orders Discharge Orders: Discharge Order (Routine); Ordered 12/23/18 Ordered By: Cristhian Reddy Discharge Data Discharge Date/Time-TO BE ENTERED AT DEPARTURE: 12/23/18 10:14 Exam Narrative Exam Narrative: Patient was examined at the bedside. His left elbow shows free and full range of motion. He still has some very mild erythema and slight swelling at the olecranon. Minimal warmth. No drainage or discharge. His vitals were stable. DS: Data Vitals/I&O Vitals and I&O: Vital Signs Temperature 36.4 C L 12/23/18 07:20 Temperature Source Tympanic 12/23/18 07:20 Pulse 82 12/23/18 07:20 Pulse Rhythm Regular 12/23/18 07:35 Respiratory Rate 18 12/23/18 07:20 Respiratory Effort Non-Labored 12/23/18 07:35 Respiratory Depth Normal 12/23/18 07:35 Respiratory Pattern Normal 12/23/18 07:35 Blood Pressure 123/75 12/23/18 07:20 Blood Pressure Position Sitting 12/19/18 17:28 Pulse Oximetry 99 12/23/18 07:20 Oxygen Delivery Method Room Air 12/23/18 07:20 Oxygen Flow Rate 0 12/23/18 07:20 Pain Level 4 12/23/18 07:46 Comment 12/23/18 03:22 Intake & Output 12/22/18 12/23/18 12/23/18 23:59 11:59 23:59 Intake Total 690 / 1330 1360 / 1360 Balance 690 / 1330 1360 / 1360 Weight 71.4 kg Intake: IV 210 / 610 200 / 200 Oral 480 / 720 1160 / 1160 Other: Comment reported UOP Ind and no issues. Voiding Methods Toilet Toilet Completed studies during hospitalization [Text1]: The cultures of the left elbow aspirate grew out staph aureus methicillin sensitive times both samples. Labs on day of discharge: Labs from last 24 hours 12/23/18 06:19 WBC 5.90 RBC 4.59 Hgb 13.7 Hct 40.4 MCV 88.0 MCH 29.8 MCHC 33.9 RDW 13.1 Plt Count 228 MPV 9.6 Immature Gran % 0.3 Neutrophils % 57.8 Lymphocytes % 29.2 Monocytes % 9.7 Eosinophils % 2.7 Basophils % 0.3 Absolute Neutrophils 3.41 Absolute Lymphocytes 1.72 Absolute Monocytes 0.57 Absolute Eosinophils 0.16 Absolute Basophils 0.02 Preliminary micro results at discharge 12/19/18 19:12 Body Fluid Culture - Preliminary Bursa Staphylococcus Aureus 12/21/18 17:15 Body Fluid Culture - Preliminary Bursa Staphylococcus Aureus [facility] Medical History Closed right fibular fracture (Resolved) Complete tear of medial collateral ligament of right knee (Resolved) Surgical History Status post arthroscopic surgery of right knee (Resolved) Family History Mother No problems noted. Father No problems noted. Brother No problems noted. Social History Smoking and Tabacco status: Never
== END 2018-12-23 10:14 | disposition home or self-care (01) | DRG 558 ==
LOC: ER 19:58 → MS 20:01
PROVIDERS: Internal Medicine; Nurse Practitioner Family; Admitting Provider Family Medicine; Emergency Provider Student in an Organized Health Care Education/Training Program; PCP Family Medicine; Visit Provider Family Medicine
DX: M71.122 Other infective bursitis, left elbow (principal); B95.61 Methicillin susceptible Staphylococcus aureus infection as the cause of diseases classified elsewhere
CPT/HCPCS: 20605; 36415; 80048; 80053; 85027; 87077; 96365; 99222; 99232; 99239; 99285; NC; 80202; 83605; 85025; 87070; 87186; 87205; 89051; 89060; 99284; J1644; J3370

== ENCOUNTER 2018-12-26 08:54 | Emergency (ER) | payer BC, SELFPAY ==
[2018-12-26 08:57] VITALS: BP 121/90; PULSE 88; RESP 16; TEMP 36.6; O2SAT 98
--- NOTE | 2018-12-26 09:26 | W.ED.GENAD ---
Discharge Plan Disposition Patient Disposition: HOME Discharge Details Chief Complaint: Recheck Clinical Impression: Septic olecranon bursitis of left elbow Primary Care Provider: Ke Lunsford ED Provider: David Crabtree Home Meds and New Rx's Prescriptions: Continued ibuprofen 800 mg tablet 800 mg PO BID RF: 0 cephalexin 500 mg tablet 500 mg PO TID Qty: 20 RF: 0 acetaminophen [Tylenol Extra Strength] 500 mg Tablet 1,000 mg PO PRN PRNRF: 0 Discharge Instructions Additional Instructions: Please continue to take antibiotic as prescribed. Dr. Story would like to see you this week in outpatient clinic. If you do not hear from his office on Friday, call to schedule appointment. Return to the ER for any worsening or new concerning symptoms. Stand Alone Forms: Work Release Referrals: Camilo Epstein MD [ [facility] STAFF PHYSICIAN] - Ke Lunsford DO [Primary Care Provider] - Woo Story MD [ [facility] STAFF PHYSICIAN] - Medical Decision Making 38-year-old male here 1 week after initial presentation with left septic olecranon bursa that required initial needle aspiration, IV antibiotic and repeat needle aspiration while admitted; it with recurrent swelling of his olecranon bursa. Culture reviewed: growing methicillin sensitive staph aureus. Patient currently taking Keflex as prescribed. Called and spoke with Dr. Story and discussed ED presentation and recent hospitalization, he recommends no surgical intervention at this time. Continue antibiotics as prescribed outpatient follow-up early this week for likely I/D. Plan was discussed with patient and he is in agreement. Patient was encouraged to return to the emergency department should he have any worsening or new concerning symptom. HPI General Mode of arrival: ambulatory. Date/Time Provider Initiated Documentation: 12/26/18 08:56. Limitations to Documentation: no limitations. Information obtained by: patient. HPI Narrative: 38-year-old male presents with chief complaint of left elbow swelling. Patient was seen here on 12/19/2018 for left septic olecranon bursitis, associated cellulitis and fever. He had needle aspiration performed in the emergency department. He was admitted for IV antibiotics. On day 2 of admission he had reaccumulation of fluid and had repeat needle aspiration performed by orthopedics. Cultures have grown staph aureus sensitive to methicillin. He was transitioned from vancomycin to Keflex and discharged home. He has been doing well at home until yesterday when he noticed that his elbow started to swell again. Elbow is painful, swollen, feels slightly warm. He denies associated fever. No rash. Patient has been taking antibiotics as prescribed. Related Data Home Medications Medication Instructions Recorded Confirmed ibuprofen 800 mg tablet 800 mg PO BID 11/09/18 12/26/18 cephalexin 500 mg PO TID #20 tab 12/23/18 12/26/18 acetaminophen [Tylenol Extra 1,000 mg PO PRN PRN 12/26/18 12/26/18 Strength] Previous Rx's Medication Instructions Recorded cephalexin 500 mg PO TID #20 tab 12/23/18 Allergies Allergy/AdvReac Type Severity Reaction Status Date / Time No Known Allergies Allergy Verified 12/26/18 09:01 General Stated Complaint: Recheck HAKEEM: 4 Review of Systems Constitutional Denies chills and Denies fever(s) Musculoskeletal Reports as per HPI Integumentary/Breasts Reports as per HPI [facility] Medical History Closed right fibular fracture (Resolved) Complete tear of medial collateral ligament of right knee (Resolved) Surgical History Status post arthroscopic surgery of right knee (Resolved) Family History Mother No problems noted. Father No problems noted. Brother No problems noted. Social History Smoking/Tobacco Use Status: Never Alcohol Intake: current Alcohol Intake frequency: a few times a week Alcohol type: beer Drug use: Never Substance use type: does not use Do you feel safe at home: Yes Do you feel safe in your relationship?: Yes Exam Const General: cooperative and no acute distress HENMT Mouth: moist mucous membranes Eyes Conjunctivae: normal conjunctivae Sclera: normal sclerae Skin General skin exam: no rashes or lesions noted (LUE, cellulitis resolved) Neuro General: alert and awake Extrem General: no edema Left upper extremity: elbow/forearm Details: other (Olecranon bursal effusion, ttp, warm, no erythema); ROM normal Course Vital Signs Temperature 36.6 C 12/26/18 08:57 Pulse 88 12/26/18 08:57 Respiratory Rate 16 12/26/18 08:57 Blood Pressure 121/90 12/26/18 08:57 Pulse Oximetry 98 12/26/18 08:57 Temperature 36.6 C 12/26/18 08:57 Temperature Source Skin 12/26/18 08:57 Pulse 88 12/26/18 08:57 Respiratory Rate 16 12/26/18 08:57 Respiratory Effort Non-Labored 12/26/18 09:02 Blood Pressure 121/90 12/26/18 08:57 Pulse Oximetry 98 12/26/18 08:57 Pain Level 5 12/26/18 08:57
[2018-12-26 09:40] VITALS: BP 121/90; PULSE 88; RESP 16; TEMP 36.6; O2SAT 98
== END 2018-12-26 09:40 | disposition home or self-care (01) ==
PROVIDERS: Emergency Provider Student in an Organized Health Care Education/Training Program; PCP Family Medicine
DX: M71.122 Other infective bursitis, left elbow (principal); B95.61 Methicillin susceptible Staphylococcus aureus infection as the cause of diseases classified elsewhere
CPT/HCPCS: 99282

== ENCOUNTER 2019-11-15 10:15 | Outpatient (REF) | payer BC, SELFPAY | END 2019-11-15 10:35 | LOC: LBN 10:15 | PROVIDERS: PCP Family Medicine; Visit Provider Family Medicine | DX: J06.9 Acute upper respiratory infection, unspecified (principal) | CPT/HCPCS: 87449 ==

== ENCOUNTER 2019-12-08 17:30 | Emergency (ER) | payer BC, SELFPAY ==
[2019-12-08] VITALS (67 sets, daily range): BP systolic 117–131; BP diastolic 74–88; PULSE 60–96; RESP 14–33; TEMP 36.8; O2SAT 96–100
--- NOTE | 2019-12-08 17:52 | W.ED.GENAD ---
Discharge Plan Disposition Patient Disposition: HOME Condition: Good Discharge Details Chief Complaint: Chest Pain Clinical Impression: Vomiting, Gastroenteritis, Chest discomfort Primary Care Provider: Ke Lunsford ED Provider: Syed Belcher Home Meds and New Rx's Prescriptions: No Action ibuprofen 800 mg tablet 800 mg PO BID RF: 0 acetaminophen [Tylenol Extra Strength] 500 mg Tablet 1,000 mg PO PRN PRNRF: 0 Discharge Instructions Instructions: Chest Pain (ED), Gastroenteritis (ED) Additional Instructions: At this time I feel that the chest pain seems to be from a muscle spasm. Your heart work-up shows no signs of significant cardiac abnormality. I do feel that the vomiting was likely from something that you ate at the [employer]. Please stick with a bland diet for the next few days. If you notice any worsening of your symptoms, or any new symptoms such as vomiting, diarrhea, fever, chills, shortness of breath, chest pain, numbness, weakness, or fainting , please return immediately to the emergency department for reevaluation. Please follow up with your primary care provider as soon as possible for reassessment and reevaluation. As always, it was a pleasure participating in your medical care today. Referrals: Ke Lunsford DO [Primary Care Provider] - Discharge Data Discharge Date/Time-TO BE ENTERED AT DEPARTURE: 12/08/19 21:25 Medical Decision Making This is a 39-year-old male with no significant past medical history who does occasionally vape, who presents today for evaluation of chest pain vomiting. Patient states that over the last few weeks he will occasionally notice a small spasm in his right anterior chest wall just above the right nipple. This does not appear to be exertionally related, there is no associated pleuritic chest pain, no fever chills or cough. It is not improved with rest. 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 After evaluation there he was sent to the ER for further evaluation. Currently aside for the small spasm in his chest and mild nausea patient has no other complaints. He denies any significant alcohol use, any previous symptoms like this, any numbness tingling weakness, tearing sensation ripping sensation in the chest, step or chest tightness. No other complaints at this time. He denies any IV or illicit drug use. He denies any personal or family history of cardiac disease. Physical exam demonstrates no abnormalities, vital signs are notably appropriate and stable. Differential is broad, but gastroenteritis in conjunction with an unrelated muscle spasm of the chest wall is highest on the differential. Differential does include but notably less likely cardiac etiology, pancreatitis, gallbladder pathology. Work-up was completed, no electrolyte abnormalities, no evidence of pancreatitis or other significant abnormality. CT scan shows no evidence of Boerhaave tear or rupture, electrolytes normal, serial troponins and serial EKGs unremarkable. Signs and symptoms clinically inconsistent with ACS, or significant acute life-threatening thoracic or abdominal pathology. P.o. trial was attempted, patient tolerated p.o. very well. Patient feels much better and would like to go home. Patient will be discharged home. Discussed red flags for which to return. I have extensively reviewed the treatment plan and discharge instructions with the patient. I have addressed all patient concerns at this time. The patient was made aware of what symptoms to monitor for that would warrant a return to the emergency department. Discussed the plan with the patient, they demonstrate verbal understanding and agreement with our assessment and plan at this time. EKG 17: 35 Rate 83, sinus rhythm, no significant ST elevations or depressions, no significant T wave inversions. No evidence of STEMI. EKG 20: 35 Rate 61, intervals normal, sinus rhythm, no significant ST elevations or depressions, no evidence of STEMI. FINDINGS: Liver: The liver is normal. Gallbladder and bile ducts: The gallbladder is contracted. Pancreas: The pancreas is normal. Spleen: The spleen is normal. Adrenals: The adrenal glands are normal. Kidneys and ureters: The kidneys are normal. Stomach and bowel: Unremarkable. No obstruction. No mucosal thickening. Appendix: A normal appendix is identified. Intraperitoneal space: Unremarkable. No free air. No significant fluid collection. Vasculature: Unremarkable. No abdominal aortic aneurysm. Lymph nodes: Unremarkable. No enlarged lymph nodes. Bladder: The urinary bladder is nondistended but grossly unremarkable in contour. Reproductive: Unremarkable as visualized. Bones/joints: Unremarkable. No acute fracture. Soft tissues: Unremarkable. IMPRESSION: No acute findings. Thank you for allowing us to participate in the care of your patient. Dictated and Authenticated by: David Issa MD 12/08/2019 7:52 PM Eastern Time ([place] & [place]) FINDINGS: Lungs: There is mild bilateral dependent atelectasis. No focal area of consolidation. No suspicious pulmonary nodule. Pleural space: Unremarkable. No pneumothorax. No pleural effusion. Heart: Unremarkable. No cardiomegaly. No pericardial effusion. Aorta: Unremarkable. No aortic aneurysm. Lymph nodes: Unremarkable. No enlarged lymph nodes. Bones/joints: Unremarkable. No acute fracture. Soft tissues: Unremarkable. IMPRESSION: No acute findings. HPI General Date/Time Provider Initiated Documentation: 12/08/19 17:39. HPI Narrative: This is a 39-year-old male with no significant past medical history who does occasionally vape, who presents today for evaluation of chest pain vomiting. Patient states that over the last few weeks he will occasionally notice a small spasm in his right anterior chest wall just above the right nipple. This does not appear to be exertionally related, there is no associated pleuritic chest pain, no fever chills or cough. It is not improved with rest. 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 After evaluation there he was sent to the ER for further evaluation. Currently aside for the small spasm in his chest and mild nausea patient has no other complaints. He denies any significant alcohol use, any previous symptoms like this, any numbness tingling weakness, tearing sensation ripping sensation in the chest, step or chest tightness. No other complaints at this time. He denies any IV or illicit drug use. He denies any personal or family history of cardiac disease. Related Data Home Medications Medication Instructions Recorded Confirmed ibuprofen 800 mg tablet 800 mg PO BID 11/09/18 12/08/19 acetaminophen [Tylenol Extra 1,000 mg PO PRN PRN 12/26/18 12/08/19 Strength] Allergies Allergy/AdvReac Type Severity Reaction Status Date / Time No Known Allergies Allergy Verified 12/08/19 17:40 General Stated Complaint: Chest Pain HAKEEM: 3 Review of Systems All systems reviewed & are unremarkable except as noted in HPI and below PFSH Social History Smoking/Tobacco Use Status: Never Alcohol Intake: current Alcohol Intake frequency: a few times a week Alcohol type: beer Drug use: Never Substance use type: does not use Do you feel safe at home: Yes Do you feel safe in your relationship?: Yes Exam Narrative Exam Narrative: 1.Const: Well-nourished, Well-developed, appearing stated age 2.Eyes: PERRL, no conjunctival injection, and symmetrical lids. 3.ENT: Atraumatic external nose and ears. Moist MM. Neck: Symmetric, trachea midline, No thyromegaly. 4.CVS: +S1/S2, No murmurs or gallops. Peripheral pulses 2+ and equal in all extremities. Brisk capillary refill in all extremities. Patient does admit to a slight subjective golf ball sized lump that he can feel above the nipple on the right anterior chest wall, however I am unable to palpate this myself. There is a small amount of spasm noted on the intercostal muscle and pectoralis major, but no other abnormality noted, and no evidence of significant asymmetry or large lump. 5.RESP: Unlabored respiratory effort. Clear to auscultation bilaterally. No wheezes rales or rhonchi 6.GI: Soft, Nontender/Nondistended, No hepatosplenomegaly. No guarding or rebound. 7.MSK: Normocephalic/Atraumatic, Extremities w/o deformity or ttp No cyanosis or clubbing, Normal movement of all extremities 8.Skin: Warm, Dry. No rashes or lesions. 9.Neuro: controller mechanic II-XII grossly intact. Sensation grossly intact, no focal neurologic deficits. 10.Psych: (AAO) x3. Appropriate mood and affect Course Vital Signs Vital signs: Vital Signs Temperature 36.8 C 12/08/19 17:33 Pulse 83 12/08/19 17:33 Respiratory Rate 22 12/08/19 17:33 Blood Pressure 121/88 12/08/19 17:33 Pulse Oximetry 100 12/08/19 17:33 Temperature 36.8 C 12/08/19 17:33 Temperature Source Temporal Artery Scan 12/08/19 17:33 Pulse 83 12/08/19 17:33 Respiratory Rate 22 12/08/19 17:33 Respiratory Effort Non-Labored 12/08/19 17:39 Blood Pressure 121/88 12/08/19 17:33 Pulse Oximetry 100 12/08/19 17:33 Oxygen Delivery Method Room Air 12/08/19 17:33 Oxygen Flow Rate 0 12/08/19 17:33 Pain Level 7 12/08/19 17:33
[2019-12-08 18:11] LABS: Abs Immature Grans 0.01 k/cumm (0.0-0.09); Absolute Basophil Count 0.02 k/cumm (0.0-0.2); Absolute Eosinophil Count 0.12 k/cumm (0.0-0.7); Absolute Lymphocyte Count 1.68 k/cumm (1.2-3.4); Absolute Monocyte Count 0.31 k/cumm (0.11-0.7); Absolute Neutrophil Count 2.64 k/cumm (1.2-6.7); Basophils % 0.4; Eosinophils % 2.5; HCT 40.6 % (40.0-50.0); HGB 14.1 g/dL (13.5-17.5); Immature Grans % 0.2 %; Lymphocytes % 35.1; Mean Corp. HGB Concentration 34.7 g/dL (32.0-36.0); Mean Corpuscular Hemoglobin 29.9 pg (27.0-33.0); Mean Corpuscular Volume 86.2 fL (80-95); Mean Platelet Volume 9.1 fL (8.0-11.0); Monocytes % 6.5; Neutrophils % 55.3; Platelet Count 238 x1000/uL (130-400); RBC 4.71 m/cumm (4.50-6.00); RBC Distribution Width 13.1 % (11.8-14.1); White Blood Cell Count 4.78 k/cumm (4.4-10.8)
[2019-12-08 18:15] LABS: Lipase 225 U/L (73-393)
[2019-12-08] MEDS: Normal Saline 1,000 ML 1000 ML IV (18:15)
[2019-12-08 18:18] LABS: ALT 40 U/L (16-63); AST 24 U/L (15-37); Albumin 4.2 g/dL (3.4-5.0); Alkaline Phosphatase 65 U/L (46-116); Anion Gap 7.1 mmol/L (3-11); BUN 20 mg/dL (7-18); Bilirubin, Total 0.4 mg/dL (0.2-1.0); CO2 29.9 mmol/L (21.0-32.0); Chloride 103 mmol/L (98-107); Glucose 127 mg/dL (74-106); Potassium 3.8 mmol/L (3.5-5.1); Sodium 140 mmol/L (136-145); Total Protein 7.4 g/dL (6.4-8.2)
[2019-12-08] MEDS: Ketorolac 15 MG/ML VIAL IVP (18:20)
[2019-12-08 18:22] LABS: Troponin I < 0.05 ng/Ml (<0.06)
[2019-12-08] MEDS: Omnipaque 350 MG/ML 100 ML BTL IJ (19:37)
--- NOTE | 2019-12-08 19:45 | DI.CT_ITS ---
EXAM: CT CHEST/ABD/PEL W CLINICAL HISTORY: vomiting x6, right sided chest pain. TECHNIQUE: Imaging Protocol: Axial computed tomography images with coronal and sagittal reformatted images were created and reviewed CONTRAST MATERIAL: Intravenous: Omnipaque 350 Contrast volume: Contrast route:IV - Oral: No no COMPARISON: No exams were available for comparison FINDINGS: CHEST: Heart and great vessels: There is no evidence pulmonary emboli or aortic dissection. There are no pleural or pericardial effusions. Adenopathy: None. Lungs: No pulmonary nodules, mass or infiltrate. No pneumothorax is seen. Bones: There is no evidence of spine or rib fracture. ABDOMEN: Liver: Normal density. No measurable mass. Gallbladder and biliary tract: No radiodense calculus or dilation. Pancreas: Normal density, no abnormal calcifications or inflammatory process. Spleen: Normal. Kidneys: Normal size, contour and axis. No radiodense stones or obstructive uropathy. No masses seen. Adrenal glands: No masses seen. Abdominal Aorta: Abdominal portion non-dilated. PELVIS: Bladder: No gross wall thickening, focal mass or stones. Bowel: No obstruction or bowel wall thickening. Peritoneal cavity: No ascites, focal collection or mesenteric inflammatory response. Bones: No suspicious lesions or fractures. Reproductive organs: Within normal limits. Lymph nodes: Unremarkable. Impression: Unremarkable CT scan of the chest, abdomen and pelvis. DATA REPOSITORY: All CT scans at this facility are submitted to the National Radiology Data Registry (NRDR) Dose Index Registry (DIR) with the [employer] (A[employer]). RADIATION OPTIMIZATION: All CT scans at this facility use at least one of these dose optimization te chniques: automated exposure control; mA and/or kV adjustment per patient size (includes targeted exa ms where dose is matched to clinical indication); or iterative reconstruction.
--- NOTE | 2019-12-08 19:53 | DI.VRAD_ITS ---
PROCEDURE INFORMATION: Exam: CT Chest With Contrast Exam date and time: 12/08/2019 5:51 PM Age: 39 years old Clinical indication: Other: Vomiting x6; Other: Right sided chest pain TECHNIQUE: Imaging protocol: Computed tomography of the chest with intravenous contrast. Radiation optimization: All CT scans at this facility use at least one of these dose optimization techniques: automated exposure control; mA and/or kV adjustment per patient size (includes targeted exams where dose is matched to clinical indication); or iterative reconstruction. COMPARISON: No relevant prior studies available. FINDINGS: Lungs: There is mild bilateral dependent atelectasis. No focal area of consolidation. No suspicious pulmonary nodule. Pleural space: Unremarkable. No pneumothorax. No pleural effusion. Heart: Unremarkable. No cardiomegaly. No pericardial effusion. Aorta: Unremarkable. No aortic aneurysm. Lymph nodes: Unremarkable. No enlarged lymph nodes. Bones/joints: Unremarkable. No acute fracture. Soft tissues: Unremarkable. IMPRESSION: No acute findings. PROCEDURE INFORMATION: Exam: CT Abdomen And Pelvis With Contrast Exam date and time: 12/08/2019 5:51 PM Age: 39 years old Clinical indication: Other: Vomiting x6; Other: Right sided chest pain TECHNIQUE: Imaging protocol: Computed tomography of the abdomen and pelvis with intravenous contrast. Radiation optimization: All CT scans at this facility use at least one of these dose optimization techniques: automated exposure control; mA and/or kV adjustment per patient size (includes targeted exams where dose is matched to clinical indication); or iterative reconstruction. Contrast material: OMNIPAQUE 350; Contrast volume: 100 ml; Contrast route: IV; COMPARISON: No relevant prior studies available. FINDINGS: Liver: The liver is normal. Gallbladder and bile ducts: The gallbladder is contracted. Pancreas: The pancreas is normal. Spleen: The spleen is normal. Adrenals: The adrenal glands are normal. Kidneys and ureters: The kidneys are normal. Stomach and bowel: Unremarkable. No obstruction. No mucosal thickening. Appendix: A normal appendix is identified. Intraperitoneal space: Unremarkable. No free air. No significant fluid collection. Vasculature: Unremarkable. No abdominal aortic aneurysm. Lymph nodes: Unremarkable. No enlarged lymph nodes. Bladder: The urinary bladder is nondistended but grossly unremarkable in contour. Reproductive: Unremarkable as visualized. Bones/joints: Unremarkable. No acute fracture. Soft tissues: Unremarkable. IMPRESSION: No acute findings. Dictated and Authenticated by: David Issa MD. Ordering:NAHUM Lynch MD
[2019-12-08 20:56] LABS: Troponin I < 0.05 ng/Ml (<0.06)
== END 2019-12-08 21:25 | disposition home or self-care (01) ==
PROVIDERS: Emergency Provider Student in an Organized Health Care Education/Training Program; PCP Family Medicine
DX: R11.2 Nausea with vomiting, unspecified (principal); R07.89 Other chest pain; K52.9 Noninfective gastroenteritis and colitis, unspecified; M62.838 Other muscle spasm; F17.290 Nicotine dependence, other tobacco product, uncomplicated
CPT/HCPCS: 36415; 74177; 80053; 83690; 93005; 96361; 96374; 99285; 71260; 84484; 85025; 93010; J1885; J3490

== ENCOUNTER 2020-12-29 03:31 | Outpatient (CLI) | payer BC, SELFPAY ==
[2020-12-30 14:17] LABS: COVID-19 RT-PCR UVMMC Result Negative (Negative)
== END 2020-12-29 03:32 | disposition home or self-care (01) ==
LOC: LBO 03:31
PROVIDERS: PCP Family Medicine; Visit Provider Family Medicine
DX: Z20.822 Contact with and (suspected) exposure to COVID-19 (principal)
CPT/HCPCS: U0003

== ENCOUNTER 2021-02-16 12:51 | Outpatient (CLI) | payer BC, SELFPAY ==
--- NOTE | 2021-02-16 14:15 | DI.RAD_ITS ---
Exam(s) XR ANKLE RT COMPLETE EXAM: XR ANKLE RT COMPLETE CLINICAL HISTORY: R lateral pain, old fib frx in this area,rt ankle pain, [id number]. TECHNIQUE: 2D digital imaging was performed. COMPARISON: CR XR ANKLE RT COMPLETE from 11/20/2018 FINDINGS: BONES: No acute fracture is present. No bony destructive lesion is seen. JOINTS: The ankle mortise is normally aligned. SOFT TISSUE: Normal. IMPRESSION: Unremarkable radiographs of the right ankle. DATA REPOSITORY: RADIATION DOSE DELIVERED:
== END 2021-02-16 13:11 ==
PROVIDERS: PCP Family Medicine; Visit Provider Family Medicine
DX: M25.571 Pain in right ankle and joints of right foot (principal)
CPT/HCPCS: 73610

== ENCOUNTER 2021-06-01 18:13 | Emergency (ER) | payer BC, SELFPAY ==
[2021-06-01 18:13] VITALS: BP 133/88; PULSE 118; RESP 18; O2SAT 96
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
== END 2021-06-01 20:10 | disposition home or self-care (01) ==
PROVIDERS: Emergency Provider Physician Assistant; PCP Family Medicine
DX: S09.8XXA Other specified injuries of head, initial encounter (principal); S01.01XA Laceration without foreign body of scalp, initial encounter; S01.81XA Laceration without foreign body of other part of head, initial encounter; Y04.0XXA Assault by unarmed brawl or fight, initial encounter; Y07.50 Unspecified non-family member, perpetrator of maltreatment and neglect
CPT/HCPCS: 12001; 12011; 99281; 70450; 70486; 72125

== ENCOUNTER 2021-09-10 10:37 | Outpatient (CLI) | payer BC, SELFPAY ==
--- NOTE | 2021-09-10 10:15 | DI.RAD_ITS ---
Exam(s) XR HAND RT COMPLETE EXAM: XR HAND RT COMPLETE CLINICAL HISTORY: Pain R middle finger, r/o frx,trauma,s69.90xa. TECHNIQUE: 2D digital imaging was performed. COMPARISON: No exams were available for comparison FINDINGS: There is focal soft tissue swelling over the distal aspect of the 3rd-middle finger but no fracture o f the subjacent distal phalanx and tuft of the distal phalanx. On the lateral view there is a oblique nondisplaced linear line in the proximal phalanx which is eith er fracture versus is overlapping shadows from the 4th finger soft tissues. Fracture line is not see n at this level on the other two views. Recommend repeating the lateral view with better separation of the 4th and 3rd fingers. The patient should not be charged for this additional image. Also corre lation with site of tenderness is recommended. There is no radiopaque foreign body. IMPRESSION: DATA REPOSITORY: RADIATION DOSE DELIVERED:
== END 2021-09-10 10:57 ==
PROVIDERS: PCP Family Medicine; Visit Provider Family Medicine
DX: M79.644 Pain in right finger(s) (principal); R93.6 Abnormal findings on diagnostic imaging of limbs
CPT/HCPCS: 73130

== ENCOUNTER 2021-12-26 01:31 | Outpatient (CLI) | payer BC, SELFPAY ==
--- NOTE | 2021-12-26 06:45 | DI.RAD_ITS ---
Exam(s) XR FOOT LT COMPLETE EXAM: XR FOOT LT COMPLETE CLINICAL HISTORY: Likely plantar fasciitis, r/o stress fracture,pain,m72.2. TECHNIQUE: 2D digital imaging was performed. COMPARISON: No exams were available for comparison FINDINGS: 3 views No evidence of fracture or diastasis of the Malaika laura joint. No degenerative changes nor erosions. No pes planus. No inferior calcaneal spur. No osseous lesions. IMPRESSION: No significant radiographic findings. DATA REPOSITORY: RADIATION DOSE DELIVERED:
== END 2021-12-26 01:51 ==
PROVIDERS: PCP Family Medicine; Visit Provider Family Medicine
DX: M72.2 Plantar fascial fibromatosis (principal)
CPT/HCPCS: 73630

== ENCOUNTER 2024-04-14 15:06 | Outpatient (REF) | payer BC, SELFPAY ==
[2024-04-14 15:17] LABS: Bacteria Negative HPF (Negative); Crystals Negative HPF (Negative); Epithelial Cells Rare HPF (Negative); Mucus Negative (Negative); RBC 0-2 HPF (0-2); WBC 0-2 HPF (0-5)
[2024-04-14 15:18] LABS: C & S Indicated? C&S Done As Ordered; Casts Negative LPF (Negative)
== END 2024-04-14 15:07 | disposition home or self-care (01) ==
LOC: LBN 15:06
PROVIDERS: PCP Family Medicine; Visit Provider Physician Assistant Medical
DX: R30.0 Dysuria (principal)
CPT/HCPCS: 81015; 87086

== ENCOUNTER 2024-05-13 18:38 | Outpatient (REF) | payer BC, SELFPAY ==
[2024-05-13 19:24] LABS: C & S Indicated? No; Crystals Many Amorphous HPF (Negative)
== END 2024-05-13 18:39 | disposition home or self-care (01) ==
LOC: LBN 18:38
PROVIDERS: PCP Family Medicine; Visit Provider Nurse Practitioner Family
DX: R31.29 Other microscopic hematuria (principal); R50.9 Fever, unspecified
CPT/HCPCS: 81015

== ENCOUNTER 2024-05-14 15:06 | Outpatient (CLI) | payer BC, SELFPAY ==
[2024-05-14 12:36] LABS: Absolute Basophil Count 0.02 10^3/uL (0.0-0.2); Absolute Eosinophil Count 0.01 10^3/uL (0.0-0.7); Absolute Lymphocyte Count 0.64 10^3/uL (1.2-3.4); Absolute Monocyte Count 0.52 10^3/uL (0.1-0.8); Basophils % 0.5 %; Eosinophils % 0.3 %; HCT 42.8 % (40.0-50.0); HGB 14.9 g/dL (13.5-17.5); Lymphocytes % 16.5 %; MCH 30.3 pg (27.0-33.0); MCHC 34.8 % (32.0-36.0); MCV 87 fL (80-95); MPV 10.3 fL (8.0-11.0); Monocytes % 13.4 %; Neutrophils % 69.3 %; Platelet Count 130 10^3/uL (130-400); RBC 4.92 10^6/uL (4.36-5.78); RDW 12.4 % (11.8-14.1); RDW-SD 39.5 fL; WBC 3.89 10^3/uL (4.4-10.8)
[2024-05-14 13:00] LABS: ALT 120 U/L (16-63); AST 91 U/L (15-37); Alkaline Phosphatase 107 U/L (46-116); Anion Gap 7.4 mmol/L (3-11); BUN 15 mg/dL (7-18); Bilirubin, Direct 0.6 mg/dL (0.0-0.2); CO2 29.6 mmol/L (21.0-32.0); CREATININE 1.2 mg/dL (0.70-1.30); Chloride 101 mmol/L (98-107); Estimated GFR 75.53 (mL/min/1.73m2); Glucose 140 mg/dL (74-106); Potassium 3.4 mmol/L (3.5-5.1); Sodium 138 mmol/L (136-145); Total Protein 7.5 g/dL (6.4-8.2)
[2024-05-14 13:42] LABS: Lab Add On Test DONE
[2024-05-14 13:51] LABS: Mono Screening Negative (Negative)
[2024-05-17 11:16] LABS: Hepatitis A Antibody IgM Negative (Negative); Hepatitis B Core Antibody Negative (Negative); Hepatitis B surface Ag Negative (Negative); Hepatitis C Ab w Rflx HCV PCR Negative (Negative)
[2024-05-17 13:30] LABS: Lyme Ab w Rflx to Lyme Confirm Equivocal (Negative)
[2024-05-17 14:31] LABS: Lyme IgG Ab Negative (Negative); Lyme IgM Ab Positive (Negative)
[2024-05-17 17:24] LABS: Anaplasma phagocytophilum Negative (Negative); B. miyamotoi PCR Negative (Negative); Babesia divergens/MO-1 Negative (Negative); Babesia duncani Negative (Negative); Babesia microti Negative (Negative); Ehrlichia chaffeensis Negative (Negative); Ehrlichia ewingii/canis Negative (Negative); Ehrlichia muris eauclairensis Negative (Negative)
== END 2024-05-14 15:07 | disposition home or self-care (01) ==
LOC: LBO 15:07
PROVIDERS: PCP Family Medicine; Visit Provider Nurse Practitioner Family
DX: R82.2 Biliuria (principal); R50.9 Fever, unspecified
CPT/HCPCS: 36415; 80048; 80076; 86617; 86704; 86709; 86803; 87340; 87798; 85025; 86308; 86618

== ENCOUNTER 2024-09-02 18:22 | Emergency (ER) | payer SELFPAY ==
[2024-09-02 18:25] VITALS: BP 161/93; PULSE 78; RESP 12; TEMP 36.7; O2SAT 97
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
== END 2024-09-02 19:41 | disposition home or self-care (01) ==
PROVIDERS: Emergency Provider Emergency Medicine; PCP Family Medicine
DX: S60.221A Contusion of right hand, initial encounter (principal); W50.0XXA Accidental hit or strike by another person, initial encounter; Y93.B9 Activity, other involving muscle strengthening exercises; Y92.89 Other specified places as the place of occurrence of the external cause; Y99.0 Civilian activity done for income or pay
CPT/HCPCS: 99283; 73130

== ENCOUNTER 2024-11-08 14:42 | Outpatient (CLI) | payer BC, SELFPAY ==
[2024-11-08 22:03] LABS: PSA, Screening 0.5 ng/mL (<=2.5)
== END 2024-11-08 14:43 | disposition home or self-care (01) ==
LOC: LBO 14:42
PROVIDERS: PCP Family Medicine; Visit Provider Nurse Practitioner Gerontology
DX: R39.9 Unspecified symptoms and signs involving the genitourinary system (principal)
CPT/HCPCS: 36415; 84153

== ENCOUNTER 2024-11-12 07:14 | Day surgery (SDC) | payer BC, SELFPAY ==
--- NOTE | 2024-11-11 16:46 | W.PM.DSUDISC ---
Date of service: 11/12/24 Discharge Plan Disposition Patient Disposition: Home Condition: Good Discharge Details Reason For Visit: screening colonoscopy Attending Provider: Sid Bright Primary Care Provider: Ke Lunsford Home Meds and New Rx's Prescriptions: Continued tamsulosin 0.4 mg capsule 0.8 mg PO DAILY Qty: 180 0RF Discontinued bisacodyl [Dulcolax (bisacodyl)] 5 mg tablet,delayed release (DR/EC) 5 mg PO ONCE Qty: 4 0RF Rx Instructions: Take per colonoscopy instructions provided by ordering providers office polyethylene glycol 3350 17 gram/dose powder 17 g PO ONCE Qty: 238 0RF Rx Instructions: Take per colonoscopy instructions provided by ordering providers office Discharge Instructions Additional Instructions: Woo, was very nice meeting you today. I hope you are comfortable through the colonoscopy. Everything went very smoothly. There were no tumors, polyps, or any other pathology. She had a normal colonoscopy today. With otherwise minimal risk factors for colon cancer, recommend another screening colonoscopy in 10 years. If anything changes in the meantime, please notify your primary care doctor. 1. If tolerated, consume a soft, low fiber diet for 1-2 days. 2[address] Do not drive, drink alcohol, operate machinery, make critical decisions, or do activities that require coordination or balance for 24 hours. 3. Because air was put into your colon during the procedure, expelling air from your rectum (passing gas or farting) is normal. 4. You may not have a bowel movement for 1-3 days because of the colonoscopy prep. This is normal. 5. Go directly to the emergency room if you notice any of the following: Develop chills (warm to touch), or if you have a thermometer and your temperature is above 101 Difficulty breathing or difficultly swallowing Persistent vomiting Severe abdominal pain, other than gas cramps Severe chest pain Black, tarry stools Any bleeding ? exceeding one tablespoon 6. Call your physician if the site where your intravenous was started becomes red, swollen, painful, and warm to touch. 7. Your physician has reviewed your pre-procedure medications. Please continue to take those medications as previously ordered. You will be given specific information/education regarding any changes to your medications before leaving. Activity:: Activity as Tolerated Diet:: As Tolerated Discharge Orders Discharge Orders: Discharge Order (Routine); Ordered 11/11/24 Ordered By: Sid Bright DS: Diagnosis Discharge Diagnosis (1) Encounter for screening colonoscopy: Status: Acute Asessment and Plan: Negative screening colonoscopy; follow-up in 10 years
--- NOTE | 2024-11-11 16:47 | COLE_ITS ---
Date of service: 11/12/24 Time of Service: 08:49 Colonoscopy Report Date of procedure: 11/12/24 Pre-op diagnosis general: screening colonoscopy Post-op diagnosis procedure note: other (Negative screening colonoscopy) Procedure: colonoscopy Surgeon: Sid Bright Anesthesia Type: General:No Airway Estimated blood loss (mL): 0 Pathology: none sent Complications: None Disposition: same day Indications: Woo is a 44 year old man who needs a screening colonscopy Prep: Miralax/Dulcolax Procedure Start Time: 08:21 Procedure End Time: 08:37 Retraction Time: 5 Findings: Negative screening colonoscopy Procedure Description: After the induction of anesthesia, and with the patient in left lateral decubitus position, I began by performing an external anorectal exam.? Perineum and skin were normal, as was the anal verge.? There was no evidence of external hemorrhoids.? Next, I performed a digital rectal exam.? I did not appreciate any abnormal findings.? Next, I advanced a colonoscope into the rectal vault.? I performed retroflexion.? This appeared normal.? Using insufflation, I then advanced the colonoscope beyond the rectal folds and into the sigmoid colon before advancing towards the cecum.? The quality of the prep was excellent.? The scope was noted to be in the cecum by identification of the ileocecal valve and appendiceal orifice.? I then began withdrawing the colonoscope using repeated irrigation as necessary for full evaluation of the colonic mucosa. ?Once the scope was withdrawn to the level of the rectum, great care was taken to examine portions of the rectal folds. I saw no signs of tumors, polyps, or any other pathology.? Finally, the scope was withdrawn and the patient was brought to the same-day surgery recovery unit as the anesthetic wore off. ?The findings and instructions were shared with the patient prior to discharge. [place] Bowel Prep [place] Bowel Prep Right Colon: 3 Left Colon: 3 Transverse Colon: 3 Total Score: 9
[2024-11-12 07:25] VITALS: BP 118/80; PULSE 86; RESP 18; TEMP 36.5; O2SAT 97
[2024-11-12] MEDS: Lactated Ringers 1,000 ML 80 ML IV (07:42)
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
[2024-11-12 07:54] VITALS: BMI 24.6
[2024-11-12 08:47] VITALS: BP 98/66; PULSE 72; RESP 18; TEMP 36.6; O2SAT 95
[2024-11-12] MEDS: Normal Saline Flush 10 ML SYR IV (09:08)
--- NOTE | 2024-11-12 09:10 | W.ANESPOSTOP ---
Postoperative Evaluation Date, Time and Location Date Performed: 11/12/24 Time Performed: 08:55 Patient Location: Day Surgery Unit Vital Signs Most Recent Imported Vital Signs: Most Recent Vital Signs Temp Pulse Resp BP Pulse Ox 36.6 C 72 18 98/66 L 95 11/12/24 08:47 11/12/24 08:47 11/12/24 08:47 11/12/24 08:47 11/12/24 08:47 Pain Score Most Recent Pain Score: Most Recent Pain Score Pain Level 0 11/12/24 0855 Assessment Mental Status: Awake (Alert & Oriented to Patient Baseline) Airway and Respiratory Function: Patent airway with normal (patient baseline) respiratory exam Cardiovascular Function: Hemodynamically Stable Hydration Status: Adequately Hydrated Nausea & Vomiting: No Nausea or Vomiting Pain: Pt. Denies Any Pain Peripheral Nerve Block: Patient did not receive a nerve block
[2024-11-12 09:14] VITALS: BP 113/84; PULSE 81; RESP 20; TEMP 36.4; O2SAT 95
== END 2024-11-12 09:27 | disposition home or self-care (01) ==
LOC: SUR 07:14
PROVIDERS: PCP Family Medicine; Visit Provider Surgery
PROC: 0DJD8ZZ Inspection of Lower Intestinal Tract, Via Natural or Artificial Opening Endoscopic (ICD-10-PCS; CPT 45378; principal; 2024-11-12 08:15)
DX: Z12.11 Encounter for screening for malignant neoplasm of colon (principal)
CPT/HCPCS: 45378; J2704

== ENCOUNTER 2024-12-20 03:01 | Outpatient (CLI) | payer BC, SELFPAY ==
--- NOTE | 2024-12-20 08:29 | DI.RAD_ITS ---
Exam(s) XR FOOT LT COMPLETE EXAM: XR FOOT LT COMPLETE CLINICAL HISTORY: Left foot pain,m79.672. TECHNIQUE: 2D digital imaging was performed of the left foot. Three images were obtained. AP, obli que and lateral views were obtained. COMPARISON: CR XR FOOT LT COMPLETE from 12/26/2021 FINDINGS: BONES: No acute fracture is present. No bony destructive lesion is seen. JOINTS: No dislocation present. The joint spaces are all well maintained. SOFT TISSUE: Normal. IMPRESSION: No acute abnormality. DATA REPOSITORY: RADIATION DOSE DELIVERED:
--- NOTE | 2024-12-20 08:29 | DI.RAD_ITS ---
Exam(s) XR FOOT RT COMPLETE EXAM: XR FOOT RT COMPLETE CLINICAL HISTORY: Right foot pain,m79.671. TECHNIQUE: 2D digital imaging was performed of the right foot. Three images were obtained. AP, obl ique and lateral views were obtained. COMPARISON: CR XR ANKLE RT COMPLETE from 02/16/2021 FINDINGS: BONES: No acute fracture is present. No bony destructive lesion is seen. JOINTS: No dislocation present. The joint spaces are well maintained. SOFT TISSUE: Normal. IMPRESSION: No acute abnormality. DATA REPOSITORY: RADIATION DOSE DELIVERED:
== END 2024-12-20 03:21 ==
LOC: DI 03:01
PROVIDERS: PCP Family Medicine; Visit Provider Podiatrist
DX: M79.671 Pain in right foot (principal); M79.672 Pain in left foot
CPT/HCPCS: 73630

== ENCOUNTER 2025-03-09 12:48 | Outpatient (REF) | payer BC, SELFPAY ==
[2025-03-09 14:15] LABS: Bilirubin Negative (Negative); Blood Negative (Negative); Clarity Clear (Clear); Glucose Negative (Negative); Ketones Negative (Negative); Leukocyte Esterase Negative (Negative); Nitrite Negative (Negative); Specific Gravity 1.015 (1.005-1.025)
== END 2025-03-09 12:49 | disposition home or self-care (01) ==
LOC: LBN 12:48
PROVIDERS: PCP Family Medicine; Visit Provider Nurse Practitioner Gerontology
DX: R31.29 Other microscopic hematuria (principal)
CPT/HCPCS: 81003

== ENCOUNTER 2025-07-30 13:56 | Outpatient (REF) | payer BC, SELFPAY | END 2025-07-30 13:57 | disposition home or self-care (01) | LOC: LBN 13:56 | PROVIDERS: PCP Family Medicine; Visit Provider Nurse Practitioner Family | DX: T14.8XXA Other injury of unspecified body region, initial encounter (principal); L08.9 Local infection of the skin and subcutaneous tissue, unspecified | CPT/HCPCS: 87077; 87070; 87186; 87205 ==